=== PATIENT | female | born 1980 | race American Indian/Alaskan Native ===

== ENCOUNTER 2020-02-17 19:39 | Inpatient (IN) | payer OTHER ==
[2020-02-17] MEDS ORDERED: SODIUM CHLORIDE 0.9% 500 ML 500 ML IV ONE (20:07)
[2020-02-17 21:02] LABS: Basophils % (Auto) 0.1 % (0.0-1.8); Hematocrit 42.8 % (30.3-42.9); Hemoglobin 14.2 gm/dl (10.1-14.3); Lymphocytes # (Auto) 0.8 K/mm3 (1.2-5.4); Lymphocytes % (Auto) 5.1 % (13.4-35.0); Mean Corpuscular HGB Conc 33 % (30-34); Mean Corpuscular Volume 82 fl (79-97); Monocytes # (Auto) 0.8 K/mm3 (0.0-0.8); Platelet Count 299 K/mm3 (140-440); Red Blood Count 5.24 M/mm3 (3.65-5.03); Red Cell Distribution Width 14.6 % (13.2-15.2)
[2020-02-17 21:10] LABS: INR 1.16 (0.87-1.13)
[2020-02-17 21:25] LABS: Alanine Aminotransferase 15 units/L (7-56); BUN/Creatinine Ratio 10; Blood Urea Nitrogen 8 mg/dL (7-17); Calcium 9.1 mg/dL (8.4-10.2); Hemolysis Index 10
[2020-02-17] MEDS ORDERED: POTASSIUM CHLORIDE ER 20 MEQ TAB PO ONE (22:10)
[2020-02-17] MEDS ORDERED: KETOROLAC 30 MG/1 ML INJ IV ONE (22:11)
[2020-02-17] MEDS ORDERED: ACETAMINOPHEN 325 MG TAB PO ONE (22:11)
[2020-02-17] MEDS ORDERED: cefTRIAXone/NS 1 GM/50 ML 1 GM/50 ML BAG IV ONE (22:25)
[2020-02-17] MEDS ORDERED: ONDANSETRON 4 MG/2 ML INJ IV ONE (22:26)
--- NOTE | 2020-02-17 22:35 | XRay Report ---
CHEST 1 VIEW INDICATION: MAIN: possible Sepsis; Patient is c/o NINA that started today. Patient was diagnosed with flu 02/04/20; sent home w/Tamiflu. Started to feel better and now it has returned and is much worse. Sat. 96% he art rate 125 in triage Temp. 102.0.. COMPARISON: None FINDINGS: Support devices: None. Heart: Within normal limits. Lungs/Pleura: Mild bilateral central peribronchial thickening and patchy multifocal airspace disease noted with no pleural effusion. Additional findings: None. IMPRESSION: 1. Pulmonary findings as above. Signer Name: Joss Linares MD Signed: 02/17/2020 10:31 PM Workstation Name: [id number]
--- NOTE | 2020-02-17 22:37 | Emergency Department Report ---
HPI - General Chief Complaint: Dyspnea/Respdistress Time Seen by Provider: 02/17/20 22:09 - HPI HPI: 39-year-old -I[place]ian female presents to the emergency department with complaint of a 3-day history of some shortness of breath, fever, nausea, vom iting, diarrhea, body aches. She denies any current cough. The patient was diagnosed with influenza about 2 weeks ago and finished a course of Tamiflu. The symptoms at that time went away. Currently her is being seen at a [facility] for similar symptoms. She also says that her 9-month-old has had a recent fever. She denies any past medical history. No recent travel. She denies any tobacco or illicit drug use. She has been using an albuterol inhaler and Tylenol for her symptoms with some mild transient relief. ED Past Medical Hx - Past Medical History Previous Medical History?: No - Surgical History Past Surgical History?: No - Social History Smoking Status: Never Smoker ED Review of Systems ROS: Stated complaint: FEVER/NINA Other details as noted in HPI Comment: All other systems reviewed and negative Constitutional: chills, fever Eyes: denies: eye pain, vision change ENT: denies: ear pain, throat pain Respiratory: shortness of breath. denies: cough Cardiovascular: denies: chest pain, palpitations Gastrointestinal: nausea, vomiting, diarrhea. denies: abdominal pain Genitourinary: denies: dysuria, discharge Musculoskeletal: myalgia. denies: joint swelling Skin: denies: rash, lesions Neurological: denies: headache, weakness Physical Exam - Physical Exam Vital Signs: Vital Signs 02/17/20 02/17/20 19:45 21:34 Temperature 102 F H Pulse Rate 125 H Respiratory 22 Rate Blood Pressure 158/89 O2 Sat by Pulse 96 Oximetry Physical Exam: GENERAL: Patient is ill-appearing. HENT: Normocephalic. Atraumatic. Patient has moist mucous membranes. EYES: Extraocular motions are intact. Pupils equal reactive to light bilaterally. NECK: Supple. Trachea is midline. CHEST/LUNGS: Mild rhonchi heard. Tachypnea but no accessory muscle use. There is no respiratory distress noted. HEART/CARDIOVASCULAR: Regular. There is mild to moderate tachycardia. There is no murmur. ABDOMEN: Abdomen is soft, nontender. Patient has normal bowel sounds. SKIN: Skin is warm and dry. NEURO: The patient is awake, alert, and oriented. The patient is cooperative. The patient has no focal neurologic deficits. Normal speech. MUSCULOSKELETAL: There is no tenderness or deformity. There is no evidence of acute injury. ED Course Vital Signs 02/17/20 02/17/20 19:45 21:34 Temperature 102 F H Pulse Rate 125 H Respiratory 22 Rate Blood Pressure 158/89 O2 Sat by Pulse 96 Oximetry ED Medical Decision Making - Lab Data Result diagrams: 02/17/20 20:16 02/17/20 20:16 - EKG Data -: EKG Interpreted by Mn EKG shows normal: sinus rhythm, axis, intervals, QRS complexes, ST-T waves (Nonspecific T waves) Rate: tachycardia (114 bpm) - EKG Data When compared to previous EKG there are: previous EKG unavailable Interpretation: other (Sinus tachycardia with nonspecific T waves) - Radiology Data Radiology results: report reviewed CHEST 1 VIEW INDICATION: MAIN: possible Sepsis; Patient is c/o NINA that started today. Patient was diagnosed with flu 02/04/20; sent home w/Tamiflu. Started to feel better and now it has returned and is much worse. Sat. 96% heart rate 125 in triage Temp. 102.0.. COMPARISON: None FINDINGS: Support devices: None. Heart: Within normal limits. Lungs/Pleura: Mild bilateral central peribronchial thickening and patchy multifocal airspace disease noted with no pleural effusion. Additional findings: None. IMPRESSION: 1. Pulmonary findings as above. - Medical Decision Making This patient presents with a 3-day history of some fever, shortness of breath, nausea and vomiting, diarrhea. She already had the flu 2 weeks ago. She presents with a fever of 102, some tachycardia, tachypnea. Chest x-ray shows patchy multifocal airspace disease concerning for developing multilobular pneumonia. She has a mild leukocytosis of 15,000 but also has leukopenia. Labs also show hyponatremia, hypokalemia, elevated CRP and LDH levels. She was treated empirically for community-acquired/bacterial pneumonia, but she has also moderate to high suspicion for viral pneumonia and Covid 19. The patient has been placed on droplet precautions since arrival to the emergency department. I have been in full PPE gear including N 95, gown, goggles, gloves during my visits and examinations with/of this patient. She will be admitted to the hospital for further evaluation and treatment and was accepted for admission by the hospitalist, Dr. Avila. I have filled out the submission request for Covid 19 testing. Critical Care Time: Yes Critical care time in (mins) excluding proc time.: 31 Critical care attestation.: If time is entered above; I have spent that time in minutes in the direct care of this critically ill patient, excluding procedure time. Critical care time was spent on this patient in doing her initial evaluation, multiple re- evaluations, ordering interpretation of labs and imaging, discussion with the patient, and discussion with the hospitalist service. Critical Care Time: 31 minutes ED Disposition Clinical Impression: Suspected 2019 novel coronavirus infection, Hyponatremia, Hypokalemia Pneumonia Qualifiers: Pneumonia type: due to unspecified organism Laterality: bilateral Lung location: unspecified part of lung Qualified Code(s): J18.9 - Pneumonia, unspecified organism Disposition: OP ADMIT IP TO THIS HOSP Is pt being admited?: Yes Condition: Fair Instructions: Bacterial Pneumonia (ED) Referrals: PRIMARY CARE, [Primary Care Provider] - 3-5 Days Time of Disposition: 01:56
[2020-02-17] MEDS ORDERED: AZITHROMYCIN 500 MG in SODIUM CHLORIDE 0.9% 250ML 250 ML IV ONE (22:51)
[2020-02-17] MEDS ORDERED: SODIUM CHLORIDE 0.9% 500 ML 500 ML ONE (22:55)
[2020-02-18 01:39] LABS: C-Reactive Protein 23.7 mg/dL (0.00-1.30)
[2020-02-18 01:58] LABS: Bilirubin,Urine NEG (Negative); Blood,Urine LG (Negative); Color,Urine Amber (Yellow); Hyaline Casts,Urine 2 /LPF; Mucus,Urine 3+ /HPF; Urobilinogen,Urine < 2.0 mg/dL (<2.0)
[2020-02-18] MEDS ORDERED: ONDANSETRON 4 MG/2 ML INJ IV PRN (02:36)
--- NOTE | 2020-02-18 02:46 | History and Physical Report ---
History of Present Illness Date of examination: 02/18/20 Date of admission: 02/18/2020 Chief complaint: FEVER SHORTNESS OF BREATH History of present illness: 39-year-old -[place] female with no significant past medical history seen in the emergency room today complaining of fever and shortness of breath which has been ongoing for the past few days. She was recently diagnosed with flu about 2 weeks ago during which time she had a Tamiflu with significant i mprovement. She however started having fever and shortness of breath over the past few days. She indicates that her is being treated for similar symptoms at [facility] and her young son is also said to have fever. She denies any recent travel. She denies any chest pain. However she has been having generalized body aches and pain, nausea and vomiting and occasional diarrhea. Evaluation in the emergency room patient said to have had a temperature of about 102 F, CBC shows leukocytosis, chemistry reveals hyponatremia and chest x-ray shows bilateral pneumonia. She was started on empiric IV antibiotics and also being ruled out for Covid 19. Past History Past Medical History: No medical history Past Surgical History: No surgical history Social history: no significant social history Family history: no significant family history Medications and Allergies Allergies Allergy/AdvReac Type Severity Reaction Status Date / Time No Known Allergies Allergy Verified 02/17/20 22:25 Active Meds: Active Medications Acetaminophen (Tylenol) 650 mg PO Q4H PRN PRN Reason: Pain MILD(1-3)/Fever >100.5/KIM Sodium Chloride (Nacl 0.9% 1000 Ml) 1,000 mls @ 125 mls/hr IV DIRECT LINDA Ceftriaxone Sodium (Rocephin/Ns 2 Gm/100 Ml) 2 gm in 100 mls @ 200 mls/hr IV Q24HR LINDA; Protocol Azithromycin 500 mg/ Sodium (Chloride) 250 mls @ 250 mls/hr IV Q24HR LINDA; Protocol Magnesium Hydroxide (Milk Of Magnesia) 30 ml PO Q4H PRN PRN Reason: Constipation Ondansetron HCl (Zofran) 4 mg IV Q8H PRN PRN Reason: Nausea And Vomiting Sodium Chloride (Sodium Chloride Flush Syringe 10 Ml) 10 ml IV BID LINDA Sodium Chloride (Sodium Chloride Flush Syringe 10 Ml) 10 ml IV PRN PRN PRN Reason: LINE FLUSH Review of Systems Constitutional: fever, chills, weakness, malaise, poor appetite Ears, nose, mouth and throat: no nasal congestion, no sore throat Cardiovascular: palpitations, no chest pain Respiratory: cough, shortness of breath Gastrointestinal: nausea, vomiting, diarrhea, no abdominal pain Genitourinary Female: dysuria, no hematuria Musculoskeletal: no neck pain, no low back pain Integumentary: no rash, no pruritis Neurological: no headaches, no change in mentation Exam - Constitutional Vitals: Temp Pulse Resp BP Pulse Ox 102 F H 98 H 12 133/85 99 02/17/20 21:34 02/18/20 01:46 02/18/20 01:46 02/18/20 01:46 02/18/20 01:46 General appearance: Present: no acute distress, well-nourished - EENT Eyes: Present: PERRL, EOM intact ENT: hearing intact, clear oral mucosa, dentition normal - Neck Neck: Present: supple, normal ROM - Respiratory Respiratory effort: normal Respiratory: bilateral: diminished - Cardiovascular Rhythm: regular Heart Sounds: Present: S1 & S2 - Extremities Extremities: no ischemia, pulses intact, No edema, Full ROM Peripheral Pulses: within normal limits - Abdominal General gastrointestinal: Present: soft, non-tender, non-distended - Integumentary Integumentary: Present: clear, warm, dry - Musculoskeletal Musculoskeletal: strength equal bilaterally - Psychiatric Psychiatric: appropriate mood/affect, intact judgment & insight, cooperative - Neurologic Neurologic: CNII-XII intact, moves all extremities Results - Labs CBC & Chem 7: 02/17/20 20:16 02/17/20 20:16 Labs: Abnormal lab results 02/17/20 02/17/20 02/17/20 Range/Units 20:16 20:16 20:16 WBC 15.6 H (4.5-11.0) K/mm3 RBC 5.24 H (3.65-5.03) M/mm3 MCH 27 L (28-32) pg Lymph % (Auto) 5.1 L (13.4-35.0) % Lymph # 0.8 L (1.2-5.4) K/mm3 Seg Neutrophils % 89.8 H (40.0-70.0) % Seg Neutrophils # 14.0 H (1.8-7.7) K/mm3 PT 15.0 H (12.2-14.9) Sec. INR 1.16 H (0.87-1.13) VBG pH (7.320-7.420) Sodium 129 L (137-145) mmol/L Potassium 3.2 L (3.6-5.0) mmol/L Chloride 92.0 L (98-107) mmol/L Carbon Dioxide 18 L (22-30) mmol/L Glucose 152 H (65-100) mg/dL Lactate Dehydrogenase (91-180) units/L C-Reactive Protein (0.00-1.30) mg/dL Urine WBC (Auto) (0.0-6.0) /HPF U Epithel Cells (Auto) (0-13.0) /HPF 02/17/20 02/17/20 02/17/20 Range/Units 20:16 23:20 23:25 WBC (4.5-11.0) K/mm3 RBC (3.65-5.03) M/mm3 MCH (28-32) pg Lymph % (Auto) (13.4-35.0) % Lymph # (1.2-5.4) K/mm3 Seg Neutrophils % (40.0-70.0) % Seg Neutrophils # (1.8-7.7) K/mm3 PT (12.2-14.9) Sec. INR (0.87-1.13) VBG pH 7.543 H (7.320-7.420) Sodium (137-145) mmol/L Potassium (3.6-5.0) mmol/L Chloride (98-107) mmol/L Carbon Dioxide (22-30) mmol/L Glucose (65-100) mg/dL Lactate Dehydrogenase 201 H (91-180) units/L C-Reactive Protein 23.70 H (0.00-1.30) mg/dL Urine WBC (Auto) 36.0 H (0.0-6.0) /HPF U Epithel Cells (Auto) 20.0 H (0-13.0) /HPF Assessment and Plan - Patient Problems (1) Pneumonia Current Visit: Yes Status: Acute Qualifiers: Pneumonia type: due to unspecified organism Laterality: bilateral Lung location: unspecified part of lung Qualified Code(s): J18.9 - Pneumonia, unspecified organism Plan to address problem: Patient placed on empiric IV antibiotics. We await blood culture results. (2) Suspected 2019 novel coronavirus infection Current Visit: Yes Status: Acute Plan to address problem: Patient placed on droplet precautions. Will consult infectious disease for eval uation and recommendation. (3) Hypokalemia Current Visit: Yes Status: Acute Plan to address problem: Potassium will be repleted and will monitor chemistry. (4) Hyponatremia Current Visit: Yes Status: Acute Plan to address problem: We will continue IV fluid normal saline and monitor chemistry. (5) DVT prophylaxis Current Visit: Yes Status: Acute Plan to address problem: Patient placed on subcutaneous heparin. (6) Full code status Current Visit: Yes Status: Acute
[2020-02-18] MEDS: ACETAMINOPHEN 325 MG TAB PO PRN ×4 (05:14→23:21)
[2020-02-18] MEDS: SODIUM CHLORIDE 0.9% 1000 ML 1,000 ML IV SCH ×3 (05:14→17:09)
[2020-02-18] MEDS: cefTRIAXone/NS 2 GM/100 ML 2 GM/100 ML BAG IV SCH (09:20)
[2020-02-18] MEDS: AZITHROMYCIN 500 MG in SODIUM CHLORIDE 0.9% 250ML 250 ML IV SCH (10:35)
[2020-02-18] MEDS: HEPARIN 5,000 UNIT/1 ML VIAL SUB-Q SCH ×2 (14:00→21:24)
--- NOTE | 2020-02-18 15:56 | Consultation ---
History of Present Illness - Reason for Consult Consult date: 02/18/20 pneumonia r/o COVID Requesting physician: JERRY NAVARRO - History of Present Illness 39 y/o female with no significant past medical history admitted on 02/17/2020 due to a week history of fever and shortness of breath associated with body aches, nausea, vomiting and some diarrhea. 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 She was recently diagnosed with flu about 2 weeks ago during which time she had a Tamiflu with significant improvement. She however started having fever and shortness of breath over the past few days. She indicates that her is also sick and being treated for similar symptoms at [place] and her young son is also said to have fever. She denies any recent travel. On arrival, temp 102, tachycardia, leukocytosis with lymphopenia, normal procalcitonin, Ferritin and LDH mildly elevated. CRP highly elevated. Chest x-ray shows bilateral patchy multifocal infiltrates. Review of Systems: Bold if positive, otherwise negative General: fevers, chills, rigors HEENT: visual disturbance, diplopia, eye pain Respiratory: cough, sputum, shortness of breath, HAYES Cardiovascular: chest pain, syncope Gastrointestinal: nausea, vomiting, diarrhea, abdominal pain Genitourinary: dysuria, hematuria, flank pain Musculoskeletal: neck pain, back pain, joint pain, edema Neurologic: headaches, seizures Hematologic: easy bruising or bleeding Endocrine: night sweats, acute weight loss Skin: rash, jaundice, redness Psychiatric: suicidal, homicidal ideation Past History Past Medical History: No medical history Past Surgical History: No surgical history Social history: no significant social history Family history: no significant family history Medications and Allergies Allergies Allergy/AdvReac Type Severity Reaction Status Date / Time No Known Allergies Allergy Verified 02/17/20 22:25 Active Meds: Active Medications Acetaminophen (Tylenol) 650 mg PO Q4H PRN PRN Reason: Pain MILD(1-3)/Fever >100.5/KIM Last Admin: 02/18/20 13:59 Dose: 650 mg Documented by: Heparin Sodium (Porcine) (Heparin) 5,000 unit SUB-Q Q8HR LINDA Last Admin: 02/18/20 14:00 Dose: 5,000 unit Documented by: Sodium Chloride (Nacl 0.9% 1000 Ml) 1,000 mls @ 125 mls/hr IV DIRECT LINDA Last Admin: 02/18/20 14:00 Dose: 125 mls/hr Documented by: Ceftriaxone Sodium (Rocephin/Ns 2 Gm/100 Ml) 2 gm in 100 mls @ 200 mls/hr IV Q24HR LINDA; Protocol Last Admin: 02/18/20 09:20 Dose: 200 mls/hr Documented by: Azithromycin 500 mg/ Sodium (Chloride) 250 mls @ 250 mls/hr IV Q24HR LINDA; Prot ocol Last Admin: 02/18/20 10:35 Dose: 250 mls/hr Documented by: Magnesium Hydroxide (Milk Of Magnesia) 30 ml PO Q4H PRN PRN Reason: Constipation Ondansetron HCl (Zofran) 4 mg IV Q8H PRN PRN Reason: Nausea And Vomiting Last Admin: 02/18/20 05:14 Dose: 4 mg Documented by: Sodium Chloride (Sodium Chloride Flush Syringe 10 Ml) 10 ml IV BID LINDA Last Admin: 02/18/20 10:34 Dose: 10 ml Documented by: Sodium Chloride (Sodium Chloride Flush Syringe 10 Ml) 10 ml IV PRN PRN PRN Reason: LINE FLUSH Last Admin: 02/18/20 05:34 Dose: 10 ml Documented by: Physical Examination - Physical Exam Narrative exam: Gen: alert in NAD in NC O2 2L Head, Ears, Nose: Normocephalic, atraumatic. Oral: Limited Cardiovascular: Limited evaluation due to PPE shortage Respiratory: deonna crackles GI: Limited evaluation due to PPE shortage Musculoskeletal: Limited evaluation due to PPE shortage Neurological: alert non focal - Constitutional Vitals: Vital Signs Temp Pulse Resp BP Pulse Ox 98.4 F 98 H 12 133/85 99 02/18/20 05:41 02/18/20 01:46 02/18/20 01:46 02/18/20 01:46 02/18/20 01:46 Temperature -Last 24 Hours Temperature 98.4 F Temperature 102 F Results - Labs CBC & Chem 7: 02/17/20 20:16 02/17/20 20:16 Labs: Abnormal lab results 02/17/20 02/17/20 02/17/20 Range/Units 20:16 20:16 20:16 WBC 15.6 H (4.5-11.0) K/mm3 RBC 5.24 H (3.65-5.03) M/mm3 MCH 27 L (28-32) pg Lymph % (Auto) 5.1 L (13.4-35.0) % Lymph # 0.8 L (1.2-5.4) K/mm3 Seg Neutrophils % 89.8 H (40.0-70.0) % Seg Neutrophils # 14.0 H (1.8-7.7) K/mm3 PT 15.0 H (12.2-14.9) Sec. INR 1.16 H (0.87-1.13) D-Dimer (0-234) ng/mlDDU VBG pH (7.320-7.420) Sodium 129 L (137-145) mmol/L Potassium 3.2 L (3.6-5.0) mmol/L Chloride 92.0 L (98-107) mmol/L Carbon Dioxide 18 L (22-30) mmol/L Glucose 152 H (65-100) mg/dL Ferritin (13.0-400.0) ng/mL Lactate Dehydrogenase (91-180) units/L C-Reactive Protein (0.00-1.30) mg/dL Urine WBC (Auto) (0.0-6.0) /HPF U Epithel Cells (Auto) (0-13.0) /HPF 02/16/02/17/20 02/17/20 Range/Units 20:16 23:20 23:25 WBC (4.5-11.0) K/mm3 RBC (3.65-5.03) M/mm3 MCH (28-32) pg Lymph % (Auto) (13.4-35.0) % Lymph # (1.2-5.4) K/mm3 Seg Neutrophils % (40.0-70.0) % Seg Neutrophils # (1.8-7.7) K/mm3 PT (12.2-14.9) Sec. INR (0.87-1.13) D-Dimer (0-234) ng/mlDDU VBG pH 7.543 H (7.320-7.420) Sodium (137-145) mmol/L Potassium (3.6-5.0) mmol/L Chloride (98-107) mmol/L Carbon Dioxide (22-30) mmol/L Glucose (65-100) mg/dL Ferritin (13.0-400.0) ng/mL Lactate Dehydrogenase 201 H (91-180) units/L C-Reactive Protein 23.70 H (0.00-1.30) mg/dL Urine WBC (Auto) 36.0 H (0.0-6.0) /HPF U Epithel Cells (Auto) 20.0 H (0-13.0) /HPF 02/18/20 02/18/20 02/18/20 Range/Units 03:03 03:03 03:03 WBC (4.5-11.0) K/mm3 RBC (3.65-5.03) M/mm3 MCH (28-32) pg Lymph % (Auto) (13.4-35.0) % Lymph # (1.2-5.4) K/mm3 Seg Neutrophils % (40.0-70.0) % Seg Neutrophils # (1.8-7.7) K/mm3 PT (12.2-14.9) Sec. INR (0.87-1.13) D-Dimer 322.27 H (0-234) ng/mlDDU VBG pH (7.320-7.420) Sodium (137-145) mmol/L Potassium (3.6-5.0) mmol/L Chloride (98-107) mmol/L Carbon Dioxide (22-30) mmol/L Glucose (65-100) mg/dL Ferritin 416.9 H (13.0-400.0) ng/mL Lactate Dehydrogenase 208 H (91-180) units/L C-Reactive Protein (0.00-1.30) mg/dL Urine WBC (Auto) (0.0-6.0) /HPF U Epithel Cells (Auto) (0-13.0) /HPF Assessment and Plan Cultures: Blood culture 02/17/2020 no growth to date A/P: 39 y/o female with no significant past medical history admitted on 02/17/2020 due to a week history of fever and shortness of breath associated with body aches, nausea, vomiting and some diarrhea. 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 CRP highly elevated. Chest x-ray shows bilateral patchy multifocal infiltrates. On 2L NC O2 #Acute resp failure: on NC O2 #N/D/diarrhea: COVID is a pneumo-enteric virus, can cause pneumonia and diarrhea Recs: Continuos pulse oximetry Obtain COVID test ContinueCOVID isolationprecautions per [facility] protocol Start hydroxychloroquine 400 mg PO BID for 1 day then 200 mg PO BID for 4 days (total 5 days) with zinc 220 mg PO qday Start ceftriaxone and azithromycin total 5 days Obtain serial Ferritin, LDH, D-Dimer, CRP every 48h Home quarantine for 14 days from initial symptoms (own bedroom, toilet, utensils), educate that viral shedding may last 21 days Daily EKG - QT monitoring - stop plaqenil if QT interval >500 If oxygen requirement and markers are improving ok to d/c on home quarantine until COVID test is back Obtain exercise oximetry before discharge Thank you for the consult, we will continue to follow. Ingrid Zamora MD Infectious Diseases [employer] ([facility]) M [phone] O [phone]
[2020-02-18] MEDS: oxyCODONE /ACETAMINOPHEN 5-325MG TAB PO PRN ×2 (17:08→23:22)
[2020-02-18] MEDS: CETIRIZINE 10 MG TAB PO SCH (17:08)
--- NOTE | 2020-02-18 21:16 | Event Note ---
Date: 02/18/20 39 y/o female patient admitted on 02/17/2020 with fever and shortness of breath of 1 week associated with body aches, nausea, vomiting and some diarrhea. 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 She was recently diagnosed with flu about 2 weeks ago during which time she had a Tamiflu with significant improvement. She however started having fever and shortness of breath over the past few days. She indicates that her is also sick and being treated for similar symptoms at [place] and her young son is also said to have fever. She denies any recent travel. On arrival, temp 102, tachycardia, leukocytosis with lymphopenia, normal procalcitonin, Ferritin and LDH mildly elevated. CRP highly elevated. Chest x-ray shows bilateral patchy multifocal infiltrates. Admitted to rule out Covid-19 I have seen and examined in isolation room with PPE and isolation precautions Continue current management., Follow ID evaluation and recommendations
[2020-02-18] MEDS ORDERED: ALBUTEROL 2.5 MG/3 ML NEBU IH PRN ×3 (22:08→22:19)
[2020-02-18] MEDS ORDERED: ALBUTEROL 2.5 MG/3 ML NEBU IH ONE (22:14)
--- NOTE | 2020-02-19 01:16 | Cat Scan Report ---
CT angio chest INDICATION / CLINICAL INFORMATION: P.E. PROTOCOL!!! S.O.B., Elevated D-dimers Omnipaque 350 / 100ml's was used for this exam.. TECHNIQUE: Axial CT images were obtained after injection of 100 cc of Omnipaque 350 IV contrast using CTA protoc ol. 3 plane MIP / 3D reconstructions were produced. All CT scans at this location are performed using CT dose reduction for ALARA by means of automated exposure control. COMPARISON: None available. FINDINGS: Following the administration of intravenous contrast, no filling defects are seen in the main pulmona ry arteries or their branches. Diffuse reticular-nodular disease is seen and both lungs. No enlarged mediastinal or hilar lymph nodes are identified. Other than degenerative change in the spine, no sign ificant skeletal abnormality is identified. IMPRESSION: 1. No evidence of pulmonary embolus 2. 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
[2020-02-19] MEDS: HEPARIN 5,000 UNIT/1 ML VIAL SUB-Q SCH ×3 (05:17→22:13)
[2020-02-19] MEDS: oxyCODONE /ACETAMINOPHEN 5-325MG TAB PO PRN ×3 (05:18→22:11)
[2020-02-19 05:41] LABS: Basophils % (Auto) 0.2 % (0.0-1.8); Hematocrit 39.3 % (30.3-42.9); Hemoglobin 12.9 gm/dl (10.1-14.3); Lymphocytes # (Auto) 1.4 K/mm3 (1.2-5.4); Lymphocytes % (Auto) 10.7 % (13.4-35.0); Mean Corpuscular HGB Conc 33 % (30-34); Mean Corpuscular Volume 82 fl (79-97); Monocytes # (Auto) 0.7 K/mm3 (0.0-0.8); Monocytes % (Auto) 5.5 % (0.0-7.3); Platelet Count 264 K/mm3 (140-440); Red Blood Count 4.79 M/mm3 (3.65-5.03); Red Cell Distribution Width 14.9 % (13.2-15.2)
[2020-02-19 05:59] LABS: BUN/Creatinine Ratio 7; Blood Urea Nitrogen 5 mg/dL (7-17); Calcium 8.2 mg/dL (8.4-10.2); Hemolysis Index 11
[2020-02-19] MEDS: SODIUM CHLORIDE 0.9% 1000 ML 1,000 ML IV SCH ×2 (08:10→18:39)
[2020-02-19] MEDS: cefTRIAXone/NS 2 GM/100 ML 2 GM/100 ML BAG IV SCH (09:27)
[2020-02-19] MEDS: CETIRIZINE 10 MG TAB PO SCH (09:28)
[2020-02-19] MEDS: AZITHROMYCIN 500 MG in SODIUM CHLORIDE 0.9% 250ML 250 ML IV SCH (10:36)
[2020-02-19] MEDS: HYDROXYCHLOROQUINE 200 MG TAB PO SCH ×2 (14:04→22:12)
[2020-02-19] MEDS: ZINC SULFATE 220 MG CAP PO SCH (14:04)
[2020-02-19] MEDS: IPRATROPIUM/ALBUTEROL SULFATE 3 ML AMPUL.NEB IH SCH ×2 (15:18→20:20)
--- NOTE | 2020-02-19 18:09 | Progress Note ---
Assessment and Plan Assessment and plan: 39-year-old -[place] female with no significant past medical history seen in the emergency room today complaining of fever and shortness of breath which has been ongoing for the past few days. She was recently diagnosed with flu about 2 weeks ago during which time she had a Tamiflu with significant improvement. She however started having fever and shortness of breath over the past few days. She indicates that her is being treated for similar symptoms at [place] and her young son is also said to have fever. She denies any recent travel. She denies any chest pain. However she has been having generalized body aches and pain, nausea and vomiting and occasional diarrhea. Evaluation in the emergency room patient said to have had a temperature of about 102 F, CBC shows leukocytosis, chemistry reveals hyponatremia and chest x-ray shows bilateral pneumonia. She was started on empiric IV antibiotics and also being ruled out for Covid 19. Patient informs me that her 's results was negative as he was also admitted at [facility]. Acute dyspnea secondary to pneumonia possible viral induced with underlying recent flu Suspected COVID 19 infection high suspicion with noted elevated ferritin and LDH and CRP P with bilateral infiltrates. Bilateral pneumonia Hypokalemia Hyponatremia Gastroenteritis with diarrhea now resolving Anxiety Plan Continue supportive care Xanax for anxiety Continuos pulse oximetry and exercise oximetry Plaquenil and azithromycin started per protocol here at [facility] f/u COVID test - pending Continue COVID isolation precautions per [facility] protocol Obtain serial Ferritin, LDH, D-Dimer, CRP every 48h Daily EKG - QT monitoring - stop plaqenil if QT interval >500 Home quarantine for 14 days from initial symptoms (own bedroom, toilet, utensils), educate that viral shedding may last 21 days We will discharge if oxygen requirement continues to improve History Interval history: Patient seen and examined, remains with pleuritic chest pain and some shortness of breath but no new complaints. Hospitalist Physical - Physical exam Narrative exam: VITAL SIGNS: Reviewed. GENERAL: The patient appears normally developed, obese anxious appearing vital signs as documented. HEAD: No signs of head trauma. EYES: Pupils are equal. Extraocular motions intact. EARS: Hearing grossly intact. MOUTH: Oropharynx is normal. NECK: No adenopathy, no JVD. CHEST: Chest with diminished r breath sounds bilaterally with fine crackles at the base. No wheezes, rales, or rhonchi. CARDIAC: Regular rate and rhythm. S1 and S2, without murmurs, gallops, or rubs. VASCULAR: No Edema. Peripheral pulses normal and equal in all extremities. ABDOMEN: Soft, non tender and non distended. No rebound or guarding, and no masses palpated. Bowel Sounds normal. MUSCULOSKELETAL: Good range of motion of all major joints. Extremities without clubbing, cyanosis or edema. NEUROLOGIC EXAM: Alert and oriented x 3 No focal sensory or strength deficits. Speech normal. Follows commands. PSYCHIATRIC: Mood anxious . SKIN: detial exam as documented in skin assessment - Constitutional Vitals: Temp Pulse Resp BP Pulse Ox 99.4 F 93 H 18 108/65 96 02/19/20 16:57 02/19/20 16:57 02/19/20 16:57 02/19/20 16:57 02/19/20 16:57 General appearance: Present: no acute distress, well-nourished Results - Labs CBC & Chem 7: 02/19/20 04:18 02/19/20 04:18 Labs: Laboratory Last Values WBC 12.7 K/mm3 (4.5-11.0) H 02/19/20 04:18 RBC 4.79 M/mm3 (3.65-5.03) 02/19/20 04:18 Hgb 12.9 gm/dl (10.1-14.3) 02/19/20 04:18 Hct 39.3 % (30.3-42.9) 02/19/20 04:18 MCV 82 fl (79-97) 02/19/20 04:18 MCH 27 pg (28-32) L 02/19/20 04:18 MCHC 33 % (30-34) 02/19/20 04:18 RDW 14.9 % (13.2-15.2) 02/19/20 04:18 Plt Count 264 K/mm3 (140-440) 02/19/20 04:18 Lymph % (Auto) 10.7 % (13.4-35.0) L 02/19/20 04:18 White % (Auto) 5.5 % (0.0-7.3) 02/19/20 04:18 Eos % (Auto) 0.0 % (0.0-4.3) 02/19/20 04:18 Baso % (Auto) 0.2 % (0.0-1.8) 02/19/20 04:18 Lymph # 1.4 K/mm3 (1.2-5.4) 02/19/20 04:18 White # 0.7 K/mm3 (0.0-0.8) 02/19/20 04:18 Eos # 0.0 K/mm3 (0.0-0.4) 02/19/20 04:18 Baso # 0.0 K/mm3 (0.0-0.1) 02/19/20 04:18 Seg Neutrophils % 83.6 % (40.0-70.0) H 02/19/20 04:18 Seg Neutrophils # 10.6 K/mm3 (1.8-7.7) H 02/19/20 04:18 PT 15.0 Sec. (12.2-14.9) H 02/17/20 20:16 INR 1.16 (0.87-1.13) H 02/17/20 20:16 D-Dimer 322.27 ng/mlDDU (0-234) H 02/18/20 03:03 VBG pH 7.543 (7.320-7.420) H 02/17/20 20:16 Sodium 135 mmol/L (137-145) L 02/19/20 04:18 Potassium 3.4 mmol/L (3.6-5.0) L 02/19/20 04:18 Chloride 97.5 mmol/L (98-107) L 02/19/20 04:18 Carbon Dioxide 20 mmol/L (22-30) L 02/19/20 04:18 Anion Gap 21 mmol/L 02/19/20 04:18 BUN 5 mg/dL (7-17) L 02/19/20 04:18 Creatinine 0.7 mg/dL (0.7-1.2) 02/19/20 04:18 Estimated GFR > 60 ml/min 02/19/20 04:18 BUN/Creatinine Ratio 7 % 02/19/20 04:18 Glucose 108 mg/dL (65-100) H 02/19/20 04:18 Lactic Acid 1.80 mmol/L (0.7-2.0) 02/17/20 20:16 Calcium 8.2 mg/dL (8.4-10.2) L 02/19/20 04:18 Magnesium 1.80 mg/dL (1.7-2.3) 02/19/20 04:18 Ferritin 416.9 ng/mL (13.0-400.0) H 02/18/20 03:03 Total Bilirubin 0.40 mg/dL (0.1-1.2) 02/17/20 20:16 AST 12 units/L (5-40) 02/17/20 20:16 ALT 15 units/L (7-56) 02/17/20 20:16 Alkaline Phosphatase 63 units/L (35-129) 02/17/20 20:16 Lactate Dehydrogenase 208 units/L (91-180) H 02/18/20 03:03 C-Reactive Protein 23.70 mg/dL (0.00-1.30) H 02/17/20 23:25 Total Protein 8.0 g/dL (6.3-8.2) 02/17/20 20:16 Albumin 4.0 g/dL (3.9-5) 02/17/20 20:16 Albumin/Globulin Ratio 1.0 % 02/17/20 20:16 Procalcitonin 0.58 ng/mL (<0.15) 02/18/20 03:03 HCG, Qual Negative (Negative) 02/17/20 20:16 Urine Color Kiesha (Yellow) 02/17/20 23:20 Urine Turbidity Turbid (Clear) 02/17/20 23:20 Urine pH 5.0 (5.0-7.0) 02/17/20 23:20 Ur Specific [place] 1.029 (1.003-1.030) 02/17/20 23:20 Urine Protein 100 mg/dl mg/dL (Negative) 02/17/20 23:20 Urine Glucose (UA) Neg mg/dL (Negative) 02/17/20 23:20 Urine Ketones 20 mg/dL (Negative) 02/17/20 23:20 Urine Blood Lg (Negative) 02/17/20 23:20 Urine Nitrite Neg (Negative) 02/17/20 23:20 Urine Bilirubin Neg (Negative) 02/17/20 23:20 Urine Urobilinogen < 2.0 mg/dL (<2.0) 02/17/20 23:20 Ur Leukocyte Esterase Tr (Negative) 02/17/20 23:20 Urine WBC (Auto) 36.0 /HPF (0.0-6.0) H 02/17/20 23:20 Urine RBC (Auto) 8.0 /HPF (0.0-6.0) 02/17/20 23:20 U Epithel Cells (Auto) 20.0 /HPF (0-13.0) H 02/17/20 23:20 Hyaline Casts 2 /LPF 02/17/20 23:20 Urine Mucus 3+ /HPF 02/17/20 23:20 Microbiology: Microbiology 02/18/20 Unknown Nares - Left MRSA Culture - Preliminary 02/17/20 23:20 Urine,Clean Catch Urine Culture - Preliminary 02/17/20 20:16 Peripheral/Venous Blood Culture - Preliminary NO GROWTH AFTER 24 HOURS 02/17/20 20:16 Peripheral/Venous Blood Culture - Preliminary NO GROWTH AFTER 24 HOURS Mack/IV: Voiding Method Toilet IV Catheter Type [Left Forearm INT / Saline Lock ] IV Catheter Type [Left Hand] Peripheral IV Active Medications - Current Medications Current Medications: Generic Name Dose Route Start Last Admin Trade Name Freq PRN Reason Stop Dose Admin Acetaminophen 650 mg 02/18/20 02:36 02/18/20 23:21 Tylenol PO 650 mg Q4H PRN Administration Pain MILD(1-3)/Fever >100.5/IKM Albuterol 2.5 mg 02/18/20 22:19 02/19/20 10:49 Proventil IH 2.5 mg Q4HRT PRN Administration Shortness Of Breath Albuterol/Ipratropium 1 ampul 02/19/20 14:45 02/19/20 15:18 Duoneb *Not For Prn Use* IH 1 ampul Q6HRT LINDA Administration Alprazolam 0.25 mg 02/19/20 14:34 Xanax PO Q8H PRN Anxiety Cetirizine HCl 10 mg 02/18/20 17:00 02/19/20 09:28 Cetirizine PO 10 mg QDAY LINDA Administration Heparin Sodium (Porcine) 5,000 unit 02/18/20 14:00 02/19/20 14:04 Heparin SUB-Q 5,000 unit Q8HR LINDA Administration Hydroxychloroquine Sulfate 400 mg 02/19/20 14:00 02/19/20 14:04 Plaquenil PO 02/19/20 22:01 400 mg BID LINDA Administration Hydroxychloroquine Sulfate 200 mg 02/20/20 10:00 Plaquenil PO 02/23/20 22:01 BID LINDA Sodium Chloride 1,000 mls @ 125 mls/hr 02/18/20 02:45 02/19/20 08:10 Nacl 0.9% 1000 Ml IV 125 mls/hr DIRECT LINDA Administration Ceftriaxone Sodium 2 gm in 100 mls @ 200 mls/hr 02/18/20 10:00 02/19/20 09:27 Rocephin/Ns 2 Gm/100 Ml IV 200 mls/hr Q24HR LINDA Administration Protocol Azithromycin 500 mg/ Sodium 250 mls @ 250 mls/hr 02/18/20 10:00 02/19/20 10:36 Chloride IV 250 mls/hr Q24HR LINDA Administration Protocol Magnesium Hydroxide 30 ml 02/18/20 02:36 Milk Of Magnesia PO Q4H PRN Constipation Ondansetron HCl 4 mg 02/18/20 02:36 02/18/20 05:14 Zofran IV 4 mg Q8H PRN Administration Nausea And Vomiting Oxycodone/Acetaminophen 1 tab 02/18/20 16:36 02/19/20 14:13 Percocet 5/325 PO 1 tab Q6H PRN Administration Pain, Moderate (4-6) Sodium Chloride 10 ml 02/18/20 10:00 02/19/20 09:28 Sodium Chloride Flush Syringe 10 Ml IV Not Given BID LINDA Sodium Chloride 10 ml 02/18/20 02:36 02/18/20 05:34 Sodium Chloride Flush Syringe 10 Ml IV 10 ml PRN PRN Administration LINE FLUSH Zinc Sulfate 220 mg 02/19/20 13:00 02/19/20 14:04 Zinc Sulfate PO 02/23/20 12:01 220 mg DAILY@1200 LINDA Administration
--- NOTE | 2020-02-19 20:26 | Progress Note ---
Assessment and Plan Cultures: Blood culture 02/17/2020 no growth to date A/P: 39 y/o female with no significant past medical history admitted on 02/17/2020 due to a week history of fever and shortness of breath associated with body aches, nausea, vomiting and some diarrhea. 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 CRP highly elevated. Chest x-ray shows bilateral patchy multifocal infiltrates. On 2L NC O2 #Acute resp failure: on NC O2 #N/D/diarrhea: COVID is a pneumo-enteric virus, can cause pneumonia and diarrhea Recs: Continuos pulse oximetry and exercise oximetry Obtain COVID test - pending ContinueCOVID isolationprecautions per [facility] protocol Continue hydroxychloroquine 400 mg PO BID for 1 day then 200 mg PO BID for 4 days (total 5 days) with zinc 220 mg PO qday Continue ceftriaxone Stop azithromycin Obtain serial Ferritin, LDH, D-Dimer, CRP - tomorrow Home quarantine for 14 days from initial symptoms (own bedroom, toilet, utensi ls), educate that viral shedding may last 21 days Daily EKG - QT monitoring - stop plaqenil if QT interval >500 Thank you for the consult, we will continue to follow. Ingrid Zamora MD Infectious Diseases [employer] [facility] ([facility]) M [phone] O [phone] Subjective Date of service: 02/19/20 Principal diagnosis: pneumonia Interval history: Remains in [place] O2 c/o HAYES, SOB and fever 101.2 Objective - Exam Narrative Exam: Gen: alert in NAD in NC O2 2L Head, Ears, Nose: Normocephalic, atraumatic. Oral: Limited Cardiovascular: Limited evaluation due to PPE shortage Respiratory: deonna crackles GI: Limited evaluation due to PPE shortage Musculoskeletal: Limited evaluation due to PPE shortage Neurological: alert non focal - Constitutional Vitals: Vital Signs Temp Pulse Resp BP Pulse Ox 99.4 F 93 H 18 108/65 96 02/19/20 16:57 02/19/20 16:57 02/19/20 16:57 02/19/20 16:57 02/19/20 16:57 Temperature -Last 24 Hours Temperature 99.4 F Temperature 98.9 F Temperature 101.2 F Temperature 102.6 F - Labs CBC & Chem 7: 02/19/20 04:18 02/19/20 04:18 Labs: Abnormal lab results 02/19/20 02/19/20 Range/Units 04:18 04:18 WBC 12.7 H (4.5-11.0) K/mm3 MCH 27 L (28-32) pg Lymph % (Auto) 10.7 L (13.4-35.0) % Seg Neutrophils % 83.6 H (40.0-70.0) % Seg Neutrophils # 10.6 H (1.8-7.7) K/mm3 Sodium 135 L (137-145) mmol/L Potassium 3.4 L (3.6-5.0) mmol/L Chloride 97.5 L (98-107) mmol/L Carbon Dioxide 20 L (22-30) mmol/L BUN 5 L (7-17) mg/dL Glucose 108 H (65-100) mg/dL Calcium 8.2 L (8.4-10.2) mg/dL
[2020-02-19] MEDS: ALPRAZolam 0.25 MG TAB PO PRN (22:12)
[2020-02-20] MEDS: IPRATROPIUM/ALBUTEROL SULFATE 3 ML AMPUL.NEB IH SCH ×3 (01:46→19:40)
[2020-02-20] MEDS: SODIUM CHLORIDE 0.9% 1000 ML 1,000 ML IV SCH ×3 (03:13→18:43)
[2020-02-20] MEDS: oxyCODONE /ACETAMINOPHEN 5-325MG TAB PO PRN ×3 (04:35→23:43)
[2020-02-20] MEDS: HEPARIN 5,000 UNIT/1 ML VIAL SUB-Q SCH ×3 (05:20→22:00)
[2020-02-20 05:35] LABS: Hematocrit 34.8 % (30.3-42.9); Hemoglobin 11.6 gm/dl (10.1-14.3); Mean Corpuscular HGB Conc 33 % (30-34); Mean Corpuscular Volume 82 fl (79-97); Platelet Count 272 K/mm3 (140-440); Red Blood Count 4.24 M/mm3 (3.65-5.03); Red Cell Distribution Width 14.7 % (13.2-15.2)
[2020-02-20] MEDS: ALPRAZolam 0.25 MG TAB PO PRN ×2 (05:54→21:58)
[2020-02-20 05:58] LABS: BUN/Creatinine Ratio 8; Blood Urea Nitrogen 5 mg/dL (7-17); Calcium 8.1 mg/dL (8.4-10.2); Hemolysis Index 0
[2020-02-20] MEDS: cefTRIAXone/NS 2 GM/100 ML 2 GM/100 ML BAG IV SCH (10:16)
[2020-02-20] MEDS: CETIRIZINE 10 MG TAB PO SCH (10:17)
[2020-02-20] MEDS: HYDROXYCHLOROQUINE 200 MG TAB PO SCH ×2 (10:17→21:58)
--- NOTE | 2020-02-20 12:01 | Consultation ---
History of Present Illness Consult date: 02/20/20 Requesting physician: MARJORIE MUÑIZ Reason for consult: hypoxemia History of present illness: 39 y/o obese female admitted with fever, dyspnea on exertion and elevated inflammatory markers. She was diagnosed with the flu last month and treated and had improvement. A few days ago started to have generalized malaise, diarrhea and shortness of breath with fever. Febrile in the ED. Family ( and son) both with similar symptoms and sick at home. CTA here was negative for PE but showed diffuse reticulonodular disease. Elevated WBC, but negative procalcitonin. Started on Rocephin and Azithro and now Hydrox chloroquine. Had elevated ferritin and today it has almost doubled. Sats are stable on 2 liters ranging in the mid 's. Past History Past Medical History: No medical history Past Surgical History: No surgical history Social history: no significant social history Family history: no significant family history Medications and Allergies Allergies Allergy/AdvReac Type Severity Reaction Status Date / Time No Known Allergies Allergy Verified 02/17/20 22:25 Home Medications Medication Instructions Recorded Confirmed Last Taken Type Ipratropium/Albuterol Sulfate 2 spray IH QID PRN 02/19/20 02/19/20 Unknown History [Combivent Respimat] Active Meds: Active Medications Acetaminophen (Tylenol) 650 mg PO Q4H PRN PRN Reason: Pain MILD(1-3)/Fever >100.5/KIM Last Admin: 02/18/20 23:21 Dose: 650 mg Documented by: Albuterol (Proventil) 2.5 mg IH Q4HRT PRN PRN Reason: Shortness Of Breath Last Admin: 02/19/20 10:49 Dose: 2.5 mg Documented by: Albuterol/Ipratropium (Duoneb *Not For Prn Use*) 1 ampul IH Q6HRT [facility] Last Admin: 02/20/20 10:10 Dose: Not Given Documented by: Alprazolam (Xanax) 0.25 mg PO Q8H PRN PRN Reason: Anxiety Last Admin: 02/20/20 05:54 Dose: 0.25 mg Documented by: Cetirizine HCl (Cetirizine) 10 mg PO QDAY [facility] Last Admin: 02/20/20 10:17 Dose: 10 mg Documented by: Heparin Sodium (Porcine) (Heparin) 5,000 unit SUB-Q Q8HR [facility] Last Admin: 02/20/20 05:20 Dose: 5,000 unit Documented by: Hydroxychloroquine Sulfate (Plaquenil) 200 mg PO BID [facility] Stop: 02/23/20 22:01 Last Admin: 02/20/20 10:17 Dose: 200 mg Documented by: Sodium Chloride (Nacl 0.9% 1000 Ml) 1,000 mls @ 125 mls/hr IV DIRECT [facility] Last Admin: 02/20/20 10:16 Dose: 125 mls/hr Documented by: Ceftriaxone Sodium (Rocephin/Ns 2 Gm/100 Ml) 2 gm in 100 mls @ 200 mls/hr IV Q24HR [facility]; Protocol Last Admin: 02/20/20 10:16 Dose: 200 mls/hr Documented by: Magnesium Hydroxide (Milk Of Magnesia) 30 ml PO Q4H PRN PRN Reason: Constipation Ondansetron HCl (Zofran) 4 mg IV Q8H PRN PRN Reason: Nausea And Vomiting Last Admin: 02/18/20 05:14 Dose: 4 mg Documented by: Oxycodone/Acetaminophen (Percocet 5/325) 1 tab PO Q6H PRN PRN Reason: Pain, Moderate (4-6) Last Admin: 02/20/20 04:35 Dose: 1 tab Documented by: Sodium Chloride (Sodium Chloride Flush Syringe 10 Ml) 10 ml IV BID [facility] Last Admin: 02/20/20 10:17 Dose: 10 ml Documented by: Sodium Chloride (Sodium Chloride Flush Syringe 10 Ml) 10 ml IV PRN PRN PRN Reason: LINE FLUSH Last Admin: 02/18/20 05:34 Dose: 10 ml Documented by: Zinc Sulfate (Zinc Sulfate) 220 mg PO DAILY@1200 [facility] Stop: 02/23/20 12:01 Last Admin: 02/19/20 14:04 Dose: 220 mg Documented by: Review of Systems Constitutional: fever, malaise, other (dyspnea) Physical Examination Vital signs: Vital Signs Pulse Resp BP Pulse Ox 125 H 22 158/89 96 02/17/20 19:45 02/17/20 19:45 02/17/20 19:45 02/17/20 19:45 Results - Laboratory Findings CBC and BMP: 02/20/20 04:12 02/20/20 04:12 PT/INR, D-dimer PT 15.0 Sec. (12.2-14.9) H 02/17/20 20:16 INR 1.16 (0.87-1.13) H 02/17/20 20:16 D-Dimer 837.36 ng/mlDDU (0-234) H 02/20/20 04:12 Abnormal lab findings: Abnormal Labs 02/17/20 02/17/20 02/17/20 20:16 20:16 20:16 WBC 15.6 H RBC 5.24 H MCH 27 L Lymph % (Auto) 5.1 L Lymph # 0.8 L Seg Neutrophils % 89.8 H Seg Neutrophils # 14.0 H PT 15.0 H INR 1.16 H D-Dimer VBG pH Sodium 129 L Potassium 3.2 L Chloride 92.0 L Carbon Dioxide 18 L BUN Creatinine Glucose 152 H Calcium Ferritin Lactate Dehydrogenase C-Reactive Protein Urine WBC (Auto) U Epithel Cells (Auto) 02/17/20 02/17/20 02/17/20 20:16 23:20 23:25 WBC RBC MCH Lymph % (Auto) Lymph # Seg Neutrophils % Seg Neutrophils # PT INR D-Dimer VBG pH 7.543 H Sodium Potassium Chloride Carbon Dioxide BUN Creatinine Glucose Calcium Ferritin Lactate Dehydrogenase 201 H C-Reactive Protein 23.70 H Urine WBC (Auto) 36.0 H U Epithel Cells (Auto) 20.0 H 02/18/20 02/18/20 02/18/20 03:03 03:03 03:03 WBC RBC MCH Lymph % (Auto) Lymph # Seg Neutrophils % Seg Neutrophils # PT INR D-Dimer 322.27 H VBG pH Sodium Potassium Chloride Carbon Dioxide BUN Creatinine Glucose Calcium Ferritin 416.9 H Lactate Dehydrogenase 208 H C-Reactive Protein Urine WBC (Auto) U Epithel Cells (Auto) 02/19/20 02/19/20 02/20/20 04:18 04:18 04:12 WBC 12.7 H RBC MCH 27 L 27 L Lymph % (Auto) 10.7 L Lymph # Seg Neutrophils % 83.6 H Seg Neutrophils # 10.6 H PT INR D-Dimer VBG pH Sodium 135 L Potassium 3.4 L Chloride 97.5 L Carbon Dioxide 20 L BUN 5 L Creatinine Glucose 108 H Calcium 8.2 L Ferritin Lactate Dehydrogenase C-Reactive Protein Urine WBC (Auto) U Epithel Cells (Auto) 02/20/20 02/20/20 02/20/20 04:12 04:12 04:12 WBC RBC MCH Lymph % (Auto) Lymph # Seg Neutrophils % Seg Neutrophils # PT INR D-Dimer 837.36 H VBG pH Sodium Potassium 3.3 L Chloride Carbon Dioxide BUN 5 L Creatinine 0.6 L Glucose 105 H Calcium 8.1 L Ferritin 822.2 H Lactate Dehydrogenase 243 H C-Reactive Protein 22.00 H Urine WBC (Auto) U Epithel Cells (Auto) - Diagnostic Findings Chest x-ray: image reviewed CT scan - chest: image reviewed (as stated in HPI) Assessment and Plan 39 y/o obese female admitted with fever, abnormal CXT/CT with elevated inflammatory markers and lymphopenia, concern for COVID 19 vs post viral infection (flu) 1. Continue supplemental O2 to keep sats >88% 2. Follow up ID recs, spoke about Vanc as well 3. Currently on experimental therapy for COVID 19, ID considering IL6 inhibitor 4. No current indication for steroid therapy would not do in this setting 5. HOpeful that COVID 19 will be back in morning.
[2020-02-20] MEDS: ZINC SULFATE 220 MG CAP PO SCH (13:10)
--- NOTE | 2020-02-20 14:52 | Progress Note ---
Assessment and Plan Assessment and plan: 39-year-old -[place] female with no significant past medical history seen in the emergency room today complaining of fever and shortness of breath which has been ongoing for the past few days. She was recently diagnosed with flu about 2 weeks ago during which time she had a Tamiflu with significant improvement. She however started having fever and shortness of breath over the past few days. She indicates that her is being treated for similar symptoms at [place] and her young son is also said to have fever. She denies any recent travel. She denies any chest pain. However she has been having generalized body aches and pain, nausea and vomiting and occasional diarrhea. Evaluation in the emergency room patient said to have had a temperature of about 102 F, CBC shows leukocytosis, chemistry reveals hyponatremia and chest x-ray shows bilateral pneumonia. She was started on empiric IV antibiotics and also being ruled out for Covid 19. Patient informs me that her 's results was negative as he was also admitted at [facility]. Acute dyspnea secondary to pneumonia possible viral induced with underlying recent flu Suspected COVID 19 infection high suspicion with noted elevated ferritin and LDH and CRP P with bilateral infiltrates. Bilateral pneumonia Hypokalemia Hyponatremia Gastroenteritis with diarrhea now resolving Anxiety Plan 02/19: Patient still with tachypnea and tachycardia. CT scan evaluated significant reticular pattern infiltrate been noted. Pulmonary consulted discussed with them also considering a post influenza pneumonia possible MRSA. Defer to infectious disease for consideration of adding vancomycin. Continue supportive care Xanax for anxiety Continuos pulse oximetry and exercise oximetry Plaquenil and azithromycin started per protocol here at [facility] f/u COVID test - pending Continue COVID isolation precautions per [facility] protocol Obtain serial Ferritin, LDH, D-Dimer, CRP every 48h Daily EKG - QT monitoring - stop plaqenil if QT interval >500 Home quarantine for 14 days from initial symptoms (own bedroom, toilet, utensils), educate that viral shedding may last 21 days We will discharge if oxygen requirement continues to improve History Interval history: Patient seen and examined, remains with pleuritic chest pain and some shortness of breath but no new complaints. Appreciated the Xanax helps him sleep some. Hospitalist Physical - Physical exam Narrative exam: VITAL SIGNS: Reviewed. GENERAL: The patient appears normally developed, obese anxious appearing vital signs as documented. HEAD: No signs of head trauma. EYES: Pupils are equal. Extraocular motions intact. EARS: Hearing grossly intact. MOUTH: Oropharynx is normal. NECK: No adenopathy, no JVD. CHEST: Chest with diminished r breath sounds bilaterally with fine crackles at the base. No wheezes, rales, or rhonchi. CARDIAC: Regular rate and rhythm. S1 and S2, without murmurs, gallops, or rubs. VASCULAR: No Edema. Peripheral pulses normal and equal in all extremities. ABDOMEN: Soft, non tender and non distended. No rebound or guarding, and no masses palpated. Bowel Sounds normal. MUSCULOSKELETAL: Good range of motion of all major joints. Extremities without clubbing, cyanosis or edema. NEUROLOGIC EXAM: Alert and oriented x 3 No focal sensory or strength deficits. Speech normal. Follows commands. PSYCHIATRIC: Mood anxious . SKIN: detial exam as documented in skin assessment - Constitutional Vitals: Temp Pulse Resp BP Pulse Ox 98.2 F 89 18 123/83 94 02/20/20 11:30 02/20/20 11:30 02/20/20 11:30 02/20/20 11:30 02/20/20 11:30 General appearance: Present: no acute distress, well-nourished Results - Labs CBC & Chem 7: 02/20/20 04:12 02/20/20 04:12 Labs: Laboratory Last Values WBC 8.4 K/mm3 (4.5-11.0) 02/20/20 04:12 RBC 4.24 M/mm3 (3.65-5.03) 02/20/20 04:12 Hgb 11.6 gm/dl (10.1-14.3) 02/20/20 04:12 Hct 34.8 % (30.3-42.9) 02/20/20 04:12 MCV 82 fl (79-97) 02/20/20 04:12 MCH 27 pg (28-32) L 02/20/20 04:12 MCHC 33 % (30-34) 02/20/20 04:12 RDW 14.7 % (13.2-15.2) 02/20/20 04:12 Plt Count 272 K/mm3 (140-440) 02/20/20 04:12 Lymph % (Auto) 10.7 % (13.4-35.0) L 02/19/20 04:18 Edgar % (Auto) 5.5 % (0.0-7.3) 02/19/20 04:18 Eos % (Auto) 0.0 % (0.0-4.3) 02/19/20 04:18 Baso % (Auto) 0.2 % (0.0-1.8) 02/19/20 04:18 Lymph # 1.4 K/mm3 (1.2-5.4) 02/19/20 04:18 Edgar # 0.7 K/mm3 (0.0-0.8) 02/19/20 04:18 Eos # 0.0 K/mm3 (0.0-0.4) 02/19/20 04:18 Baso # 0.0 K/mm3 (0.0-0.1) 02/19/20 04:18 Seg Neutrophils % 83.6 % (40.0-70.0) H 02/19/20 04:18 Seg Neutrophils # 10.6 K/mm3 (1.8-7.7) H 02/19/20 04:18 PT 15.0 Sec. (12.2-14.9) H 02/17/20 20:16 INR 1.16 (0.87-1.13) H 02/17/20 20:16 D-Dimer 837.36 ng/mlDDU (0-234) H 02/20/20 04:12 VBG pH 7.543 (7.320-7.420) H 02/17/20 20:16 Sodium 137 mmol/L (137-145) 02/20/20 04:12 Potassium 3.3 mmol/L (3.6-5.0) L 02/20/20 04:12 Chloride 105.0 mmol/L (98-107) 02/20/20 04:12 Carbon Dioxide 23 mmol/L (22-30) 02/20/20 04:12 Anion Gap 12 mmol/L 02/20/20 04:12 BUN 5 mg/dL (7-17) L 02/20/20 04:12 Creatinine 0.6 mg/dL (0.7-1.2) L 02/20/20 04:12 Estimated GFR > 60 ml/min 02/20/20 04:12 BUN/Creatinine Ratio 8 % 02/20/20 04:12 Glucose 105 mg/dL (65-100) H 02/20/20 04:12 Lactic Acid 1.80 mmol/L (0.7-2.0) 02/17/20 20:16 Calcium 8.1 mg/dL (8.4-10.2) L 02/20/20 04:12 Magnesium 1.80 mg/dL (1.7-2.3) 02/19/20 04:18 Ferritin 822.2 ng/mL (13.0-400.0) H 02/20/20 04:12 Total Bilirubin 0.40 mg/dL (0.1-1.2) 02/17/20 20:16 AST 12 units/L (5-40) 02/17/20 20:16 ALT 15 units/L (7-56) 02/17/20 20:16 Alkaline Phosphatase 63 units/L (35-129) 02/17/20 20:16 Lactate Dehydrogenase 243 units/L (91-180) H 02/20/20 04:12 C-Reactive Protein 22.00 mg/dL (0.00-1.30) H 02/20/20 04:12 Total Protein 8.0 g/dL (6.3-8.2) 02/17/20 20:16 Albumin 4.0 g/dL (3.9-5) 02/17/20 20:16 Albumin/Globulin Ratio 1.0 % 02/17/20 20:16 Procalcitonin 0.39 ng/mL (<0.15) 02/20/20 04:12 HCG, Qual Negative (Negative) 02/17/20 20:16 Urine Color Kiesha (Yellow) 02/17/20 23:20 Urine Turbidity Turbid (Clear) 02/17/20 23:20 Urine pH 5.0 (5.0-7.0) 02/17/20 23:20 Ur Specific [place] 1.029 (1.003-1.030) 02/17/20 23:20 Urine Protein 100 mg/dl mg/dL (Negative) 02/17/20 23:20 Urine Glucose (UA) Neg mg/dL (Negative) 02/17/20 23:20 Urine Ketones 20 mg/dL (Negative) 02/17/20 23:20 Urine Blood Lg (Negative) 02/17/20 23:20 Urine Nitrite Neg (Negative) 02/17/20 23:20 Urine Bilirubin Neg (Negative) 02/17/20 23:20 Urine Urobilinogen < 2.0 mg/dL (<2.0) 02/17/20 23:20 Ur Leukocyte Esterase Tr (Negative) 02/17/20 23:20 Urine WBC (Auto) 36.0 /HPF (0.0-6.0) H 02/17/20 23:20 Urine RBC (Auto) 8.0 /HPF (0.0-6.0) 02/17/20 23:20 U Epithel Cells (Auto) 20.0 /HPF (0-13.0) H 02/17/20 23:20 Hyaline Casts 2 /LPF 02/17/20 23:20 Urine Mucus 3+ /HPF 02/17/20 23:20 Microbiology: Microbiology 02/18/20 Unknown Nares - Left MRSA Culture - Final 02/17/20 23:20 Urine,Clean Catch Urine Culture - Final 02/17/20 20:16 Peripheral/Venous Blood Culture - Preliminary NO GROWTH AFTER 48 HOURS 02/17/20 20:16 Peripheral/Venous Blood Culture - Preliminary NO GROWTH AFTER 48 HOURS Mack/IV: Voiding Method Toilet IV Catheter Type [Left Forearm INT / Saline Lock ] IV Catheter Type [Left Hand] Peripheral IV Active Medications - Current Medications Current Medications: Generic Name Dose Route Start Last Admin Trade Name Freq PRN Reason Stop Dose Admin Acetaminophen 650 mg 02/18/20 02:36 02/18/20 23:21 Tylenol PO 650 mg Q4H PRN Administration Pain MILD(1-3)/Fever >100.5/KIM Albuterol 2.5 mg 02/18/20 22:19 02/19/20 10:49 Proventil IH 2.5 mg Q4HRT PRN Administration Shortness Of Breath Albuterol/Ipratropium 1 ampul 02/19/20 14:45 02/20/20 10:10 Duoneb *Not For Prn Use* IH Not Given Q6HRT LINDA Alprazolam 0.25 mg 02/19/20 14:34 02/20/20 05:54 Xanax PO 0.25 mg Q8H PRN Administration Anxiety Cetirizine HCl 10 mg 02/18/20 17:00 02/20/20 10:17 Cetirizine PO 10 mg QDAY LINDA Administration Heparin Sodium (Porcine) 5,000 unit 02/18/20 14:00 02/20/20 13:10 Heparin SUB-Q 5,000 unit Q8HR LINDA Administration Hydroxychloroquine Sulfate 200 mg 02/20/20 10:00 02/20/20 10:17 Plaquenil PO 02/23/20 22:01 200 mg BID LINDA Administration Sodium Chloride 1,000 mls @ 125 mls/hr 02/18/20 02:45 02/20/20 10:16 Nacl 0.9% 1000 Ml IV 125 mls/hr DIRECT LINDA Administration Ceftriaxone Sodium 2 gm in 100 mls @ 200 mls/hr 02/18/20 10:00 02/20/20 10:16 Rocephin/Ns 2 Gm/100 Ml IV 200 mls/hr Q24HR LINDA Administration Protocol Magnesium Hydroxide 30 ml 02/18/20 02:36 Milk Of Magnesia PO Q4H PRN Constipation Ondansetron HCl 4 mg 02/18/20 02:36 02/18/20 05:14 Zofran IV 4 mg Q8H PRN Administration Nausea And Vomiting Oxycodone/Acetaminophen 1 tab 02/18/20 16:36 02/20/20 04:35 Percocet 5/325 PO 1 tab Q6H PRN Administration Pain, Moderate (4-6) Sodium Chloride 10 ml 02/18/20 10:00 02/20/20 10:17 Sodium Chloride Flush Syringe 10 Ml IV 10 ml BID LINDA Administration Sodium Chloride 10 ml 02/18/20 02:36 02/18/20 05:34 Sodium Chloride Flush Syringe 10 Ml IV 10 ml PRN PRN Administration LINE FLUSH Zinc Sulfate 220 mg 02/19/20 13:00 02/20/20 13:10 Zinc Sulfate PO 02/23/20 12:01 220 mg DAILY@1200 LINDA Administration
--- NOTE | 2020-02-20 17:40 | Consultation ---
History of Present Illness - Reason for Consult Consult date: 02/20/20 - History of Present Illness Review of Systems: Bold if positive, otherwise negative General: fevers, chills, rigors HEENT: visual disturbance, diplopia, eye pain Respiratory: cough, sputum, shortness of breath, HAYES Cardiovascular: chest pain, syncope Gastrointestinal: nausea, vomiting, diarrhea, abdominal pain Genitourinary: dysuria, hematuria, flank pain Musculoskeletal: neck pain, back pain, joint pain, edema Neurologic: headaches, seizures Hematologic: easy bruising or bleeding Endocrine: night sweats, acute weight loss Skin: rash, jaundice, redness Psychiatric: suicidal, homicidal ideation Gen: alert in NAD in [place] O2 2L Head, Ears, Nose: Normocephalic, atraumatic. Oral: Limited Cardiovascular: Limited evaluation due to PPE shortage Respiratory: deonna crackles GI: Limited evaluation due to PPE shortage Musculoskeletal: Limited evaluation due to PPE shortage Neurological: alert non focal Cultures: Blood culture 02/17/2020 no growth to date A/P: #Fever: likely due to bilateral pneumonia: #Bilateral pneumonia: high suspicion for COVID, noted Ferritin and LDH mildly elevated. CRP highly elevated. Chest x-ray shows bilateral patchy multifocal infiltrates. On 2L NC O2 #Acute resp failure: on NC O2 Recs: Continuos pulse oximetry Obtain COVID test ContinueCOVID isolationprecautions per [facility] protocol Start hydroxychloroquine 400 mg PO BID for 1 day then 200 mg PO BID for 4 days (total 5 days) with zinc 220 mg PO qday Start ceftriaxone and azithromycin total 5 days Obtain serial Ferritin, LDH, D-Dimer, CRP every 48h Home quarantine for 14 days from initial symptoms (own bedroom, toilet, utensils), educate that viral shedding may last 21 days Daily EKG - QT monitoring - stop plaqenil if QT interval >500 If oxygen requirement and markers are improving ok to d/c on home quarantine until COVID test is back Obtain exercise oximetry before discharge Thank you for the consult, we will continue to follow. Ingrid Zamora MD Infectious Diseases [employer] Operator [facility] ([facility]) M [phone] O [phone] Past History Past Medical History: No medical history Past Surgical History: No surgical history Social history: no significant social history Family history: no significant family history Medications and Allergies Allergies Allergy/AdvReac Type Severity Reaction Status Date / Time No Known Allergies Allergy Verified 02/17/20 22:25 Home Medications Medication Instructions Recorded Confirmed Last Taken Type Ipratropium/Albuterol Sulfate 2 spray IH QID PRN 02/19/20 02/19/20 Unknown History [Combivent Respimat] Active Meds: Active Medications Acetaminophen (Tylenol) 650 mg PO Q4H PRN PRN Reason: Pain MILD(1-3)/Fever >100.5/KIM Last Admin: 02/18/20 23:21 Dose: 650 mg Documented by: Albuterol (Proventil) 2.5 mg IH Q4HRT PRN PRN Reason: Shortness Of Breath Last Admin: 02/19/20 10:49 Dose: 2.5 mg Documented by: Albuterol/Ipratropium (Duoneb *Not For Prn Use*) 1 ampul IH Q6HRT [facility] Last Admin: 02/20/20 10:10 Dose: Not Given Documented by: Alprazolam (Xanax) 0.25 mg PO Q8H PRN PRN Reason: Anxiety Last Admin: 02/20/20 05:54 Dose: 0.25 mg Documented by: Cetirizine HCl (Cetirizine) 10 mg PO QDAY [facility] Last Admin: 02/20/20 10:17 Dose: 10 mg Documented by: Heparin Sodium (Porcine) (Heparin) 5,000 unit SUB-Q Q8HR [facility] Last Admin: 02/20/20 13:10 Dose: 5,000 unit Documented by: Hydroxychloroquine Sulfate (Plaquenil) 200 mg PO BID LINDA Stop: 02/23/20 22:01 Last Admin: 02/20/20 10:17 Dose: 200 mg Documented by: Sodium Chloride (Nacl 0.9% 1000 Ml) 1,000 mls @ 125 mls/hr IV DIRECT [facility] Last Admin: 02/20/20 10:16 Dose: 125 mls/hr Documented by: Ceftriaxone Sodium (Rocephin/Ns 2 Gm/100 Ml) 2 gm in 100 mls @ 200 mls/hr IV Q24HR LINDA; Protocol Last Admin: 02/20/20 10:16 Dose: 200 mls/hr Documented by: Magnesium Hydroxide (Milk Of Magnesia) 30 ml PO Q4H PRN PRN Reason: Constipation Ondansetron HCl (Zofran) 4 mg IV Q8H PRN PRN Reason: Nausea And Vomiting Last Admin: 02/18/20 05:14 Dose: 4 mg Documented by: Oxycodone/Acetaminophen (Percocet 5/325) 1 tab PO Q6H PRN PRN Reason: Pain, Moderate (4-6) Last Admin: 02/20/20 17:22 Dose: 1 tab Documented by: Sodium Chloride (Sodium Chloride Flush Syringe 10 Ml) 10 ml IV BID [facility] Last Admin: 02/20/20 10:17 Dose: 10 ml Documented by: Sodium Chloride (Sodium Chloride Flush Syringe 10 Ml) 10 ml IV PRN PRN PRN Reason: LINE FLUSH Last Admin: 02/18/20 05:34 Dose: 10 ml Documented by: Zinc Sulfate (Zinc Sulfate) 220 mg PO DAILY@1200 LINDA Stop: 02/23/20 12:01 Last Admin: 02/20/20 13:10 Dose: 220 mg Documented by: Physical Examination - Constitutional Vitals: Vital Signs Temp Pulse Resp BP Pulse Ox 98.4 F 85 18 123/83 99 02/20/20 14:00 02/20/20 14:00 02/20/20 17:26 02/20/20 11:30 02/20/20 14:00 Temperature -Last 24 Hours Temperature 98.4 F Temperature 98.2 F Temperature 98.5 F Temperature 99.2 F Results - Labs CBC & Chem 7: 02/20/20 04:12 02/20/20 04:12 Labs: Abnormal lab results 02/20/20 02/20/20 02/20/20 Range/Units 04:12 04:12 04:12 MCH 27 L (28-32) pg D-Dimer 837.36 H (0-234) ng/mlDDU Potassium 3.3 L (3.6-5.0) mmol/L BUN 5 L (7-17) mg/dL Creatinine 0.6 L (0.7-1.2) mg/dL Glucose 105 H (65-100) mg/dL Calcium 8.1 L (8.4-10.2) mg/dL Ferritin (13.0-400.0) ng/mL Lactate Dehydrogenase 243 H (91-180) units/L C-Reactive Protein 22.00 H (0.00-1.30) mg/dL 02/20/20 Range/Units 04:12 MCH (28-32) pg D-Dimer (0-234) ng/mlDDU Potassium (3.6-5.0) mmol/L BUN (7-17) mg/dL Creatinine (0.7-1.2) mg/dL Glucose (65-100) mg/dL Calcium (8.4-10.2) mg/dL Ferritin 822.2 H (13.0-400.0) ng/mL Lactate Dehydrogenase (91-180) units/L C-Reactive Protein (0.00-1.30) mg/dL
[2020-02-21] MEDS: IPRATROPIUM/ALBUTEROL SULFATE 3 ML AMPUL.NEB IH SCH ×5 (01:45→20:16)
[2020-02-21] MEDS: SODIUM CHLORIDE 0.9% 1000 ML 1,000 ML IV SCH ×2 (01:50→10:00)
[2020-02-21] MEDS: oxyCODONE /ACETAMINOPHEN 5-325MG TAB PO PRN ×3 (05:30→23:24)
[2020-02-21] MEDS: HEPARIN 5,000 UNIT/1 ML VIAL SUB-Q SCH ×3 (05:35→21:35)
[2020-02-21] MEDS: CETIRIZINE 10 MG TAB PO SCH (10:00)
[2020-02-21] MEDS: HYDROXYCHLOROQUINE 200 MG TAB PO SCH ×2 (10:00→21:35)
[2020-02-21] MEDS: cefTRIAXone/NS 2 GM/100 ML 2 GM/100 ML BAG IV SCH (10:00)
--- NOTE | 2020-02-21 11:06 | Progress Note ---
Assessment and Plan 39 y/o obese female admitted with fever, abnormal CXT/CT with elevated inflammatory markers and lymphopenia, concern for COVID 19 vs post viral infection (flu) 1. Continue supplemental O2 to keep sats >88% 2. Follow up ID recs, spoke about Vanc as well. Will see if they consider giving today. 3. Currently on experimental therapy for COVID 19, ID considering IL6 inhibitor 4. No current indication for steroid therapy would not do in this setting 5. HOpeful that COVID 19 will be back in morning or hopefully later today. Should have been updated by now 6. Repeat CXR ordered for today. Subjective Date of service: 02/21/20 Principal diagnosis: pneumonia Interval history: No acute events. O2 requirement not documented yet. Objective Vital Signs - 12hr 02/20/20 02/21/20 02/21/20 23:43 04:25 05:30 Temperature 98.0 F Pulse Rate 84 Respiratory 18 18 18 Rate Blood Pressure 128/78 O2 Sat by Pulse 93 Oximetry CBC and BMP: 02/20/20 04:12 02/20/20 04:12 ABG, PT/INR, D-dimer: PT/INR, D-dimer PT 15.0 Sec. (12.2-14.9) H 02/17/20 20:16 INR 1.16 (0.87-1.13) H 02/17/20 20:16 D-Dimer 837.36 ng/mlDDU (0-234) H 02/20/20 04:12 Abnormal lab findings: Abnormal Labs 02/17/20 02/17/20 02/17/20 20:16 20:16 20:16 WBC 15.6 H RBC 5.24 H MCH 27 L Lymph % (Auto) 5.1 L Lymph # 0.8 L Seg Neutrophils % 89.8 H Seg Neutrophils # 14.0 H PT 15.0 H INR 1.16 H D-Dimer VBG pH Sodium 129 L Potassium 3.2 L Chloride 92.0 L Carbon Dioxide 18 L BUN Creatinine Glucose 152 H Calcium Ferritin Lactate Dehydrogenase C-Reactive Protein Urine WBC (Auto) U Epithel Cells (Auto) 02/17/20 02/17/20 02/17/20 20:16 23:20 23:25 WBC RBC MCH Lymph % (Auto) Lymph # Seg Neutrophils % Seg Neutrophils # PT INR D-Dimer VBG pH 7.543 H Sodium Potassium Chloride Carbon Dioxide BUN Creatinine Glucose Calcium Ferritin Lactate Dehydrogenase 201 H C-Reactive Protein 23.70 H Urine WBC (Auto) 36.0 H U Epithel Cells (Auto) 20.0 H 02/18/20 02/18/20 02/18/20 03:03 03:03 03:03 WBC RBC MCH Lymph % (Auto) Lymph # Seg Neutrophils % Seg Neutrophils # PT INR D-Dimer 322.27 H VBG pH Sodium Potassium Chloride Carbon Dioxide BUN Creatinine Glucose Calcium Ferritin 416.9 H Lactate Dehydrogenase 208 H C-Reactive Protein Urine WBC (Auto) U Epithel Cells (Auto) 02/19/20 02/19/20 02/20/20 04:18 04:18 04:12 WBC 12.7 H RBC MCH 27 L 27 L Lymph % (Auto) 10.7 L Lymph # Seg Neutrophils % 83.6 H Seg Neutrophils # 10.6 H PT INR D-Dimer VBG pH Sodium 135 L Potassium 3.4 L Chloride 97.5 L Carbon Dioxide 20 L BUN 5 L Creatinine Glucose 108 H Calcium 8.2 L Ferritin Lactate Dehydrogenase C-Reactive Protein Urine WBC (Auto) U Epithel Cells (Auto) 02/20/20 02/20/20 02/20/20 04:12 04:12 04:12 WBC RBC MCH Lymph % (Auto) Lymph # Seg Neutrophils % Seg Neutrophils # PT INR D-Dimer 837.36 H VBG pH Sodium Potassium 3.3 L Chloride Carbon Dioxide BUN 5 L Creatinine 0.6 L Glucose 105 H Calcium 8.1 L Ferritin 822.2 H Lactate Dehydrogenase 243 H C-Reactive Protein 22.00 H Urine WBC (Auto) U Epithel Cells (Auto)
--- NOTE | 2020-02-21 12:36 | Progress Note ---
Assessment and Plan Assessment and plan: 39-year-old -F[place]ian female with no significant past medical history seen in the emergency room today complaining of fever and shortness of breath which has been ongoing for the past few days. She was recently diagnosed with flu about 2 weeks ago during which time she had a Tamiflu with significant improvement. She however started having fever and shortness of breath over the past few days. She indicates that her is being treated for similar symptoms at [place] and her young son is also said to have fever. She denies any recent travel. She denies any chest pain. However she has been having generalized body aches and pain, nausea and vomiting and occasional diarrhea. Evaluation in the emergency room patient said to have had a temperature of about 102 F, CBC shows leukocytosis, chemistry reveals hyponatremia and chest x-ray shows bilateral pneumonia. She was started on empiric IV antibiotics and also being ruled out for Covid 19. Patient informs me that her 's results was negative as he was also admitted at [facility]. Acute dyspnea secondary to pneumonia possible viral induced with underlying recent flu COVID 19 test results came back negative although high suspicion with noted elevated ferritin and LDH and CRP with bilateral infiltrates.? False negative. There is good chance that her results is actually negative as her at other hospital also tested negative. Bilateral pneumonia Hypokalemia Hyponatremia Gastroenteritis with diarrhea now resolving Anxiety Plan 4/2: Patient still with tachypnea and tachycardia. CT scan evaluated significant reticular pattern infiltrate been noted. Pulmonary consulted discu ssed with them also considering a post influenza pneumonia possible MRSA. Defer to infectious disease for consideration of adding vancomycin. 4/3: Continue supportive care due to concern as noted above we will continue patient on isolation and treat patient as if she was positive and completed kyle tment. We will also recommend self-isolation once her pulmonary status improved. And encourage ambulation in the room. Anticipate discharge in 24 to 48 hours I also discussed with ID will be broadening her antibiotic coverage to consider post influenza pneumonia Continue supportive care Xanax for anxiety Continuos pulse oximetry and exercise oximetry Plaquenil and azithromycin started per protocol here at [facility] f/u COVID test - pending Continue COVID isolation precautions per [facility] protocol Obtain serial Ferritin, LDH, D-Dimer, CRP every 48h Daily EKG - QT monitoring - stop plaqenil if QT interval >500 Home quarantine for 14 days from initial symptoms (own bedroom, toilet, utensils), educate that viral shedding may last 21 days We will discharge if oxygen requirement continues to improve History Interval history: Patient seen and examined, appears to be clinically improving but still reports pleuritic chest pain and dyspnea on exertion. She is a bit anxious. Hospitalist Physical - Physical exam Narrative exam: VITAL SIGNS: Reviewed. GENERAL: The patient appears normally developed, obese, anxious appearing vital signs as documented. HEAD: No signs of head trauma. EYES: Pupils are equal. Extraocular motions intact. EARS: Hearing grossly intact. MOUTH: Oropharynx is normal. NECK: No adenopathy, no JVD. CHEST: Chest with diminished r breath sounds bilaterally with fine crackles at the base. No wheezes, rales, or rhonchi. CARDIAC: Regular rate and rhythm. S1 and S2, without murmurs, gallops, or rubs. VASCULAR: No Edema. Peripheral pulses normal and equal in all extremities. ABDOMEN: Soft, non tender and non distended. No rebound or guarding, and no masses palpated. Bowel Sounds normal. MUSCULOSKELETAL: Good range of motion of all major joints. Extremities without clubbing, cyanosis or edema. NEUROLOGIC EXAM: Alert and oriented x 3 No focal sensory or strength deficits. Speech normal. Follows commands. PSYCHIATRIC: Mood anxious . SKIN: detail exam as documented in skin assessment - Constitutional Vitals: Temp Pulse Resp BP Pulse Ox 98.0 F 84 18 128/78 93 02/21/20 04:25 02/21/20 04:25 02/21/20 08:00 02/21/20 04:25 02/21/20 04:25 General appearance: Present: no acute distress, well-nourished Results - Labs CBC & Chem 7: 02/20/20 04:12 02/20/20 04:12 Labs: Laboratory Last Values WBC 8.4 K/mm3 (4.5-11.0) 02/20/20 04:12 RBC 4.24 M/mm3 (3.65-5.03) 02/20/20 04:12 Hgb 11.6 gm/dl (10.1-14.3) 02/20/20 04:12 Hct 34.8 % (30.3-42.9) 02/20/20 04:12 MCV 82 fl (79-97) 02/20/20 04:12 MCH 27 pg (28-32) L 02/20/20 04:12 MCHC 33 % (30-34) 02/20/20 04:12 RDW 14.7 % (13.2-15.2) 02/20/20 04:12 Plt Count 272 K/mm3 (140-440) 02/20/20 04:12 Lymph % (Auto) 10.7 % (13.4-35.0) L 02/19/20 04:18 [place] % (Auto) 5.5 % (0.0-7.3) 02/19/20 04:18 Eos % (Auto) 0.0 % (0.0-4.3) 02/19/20 04:18 Baso % (Auto) 0.2 % (0.0-1.8) 02/19/20 04:18 Lymph # 1.4 K/mm3 (1.2-5.4) 02/19/20 04:18 [place] # 0.7 K/mm3 (0.0-0.8) 02/19/20 04:18 Eos # 0.0 K/mm3 (0.0-0.4) 02/19/20 04:18 Baso # 0.0 K/mm3 (0.0-0.1) 02/19/20 04:18 Seg Neutrophils % 83.6 % (40.0-70.0) H 02/19/20 04:18 Seg Neutrophils # 10.6 K/mm3 (1.8-7.7) H 02/19/20 04:18 PT 15.0 Sec. (12.2-14.9) H 02/17/20 20:16 INR 1.16 (0.87-1.13) H 02/17/20 20:16 D-Dimer 837.36 ng/mlDDU (0-234) H 02/20/20 04:12 VBG pH 7.543 (7.320-7.420) H 02/17/20 20:16 Sodium 137 mmol/L (137-145) 02/20/20 04:12 Potassium 3.3 mmol/L (3.6-5.0) L 02/20/20 04:12 Chloride 105.0 mmol/L (98-107) 02/20/20 04:12 Carbon Dioxide 23 mmol/L (22-30) 02/20/20 04:12 Anion Gap 12 mmol/L 02/20/20 04:12 BUN 5 mg/dL (7-17) L 02/20/20 04:12 Creatinine 0.6 mg/dL (0.7-1.2) L 02/20/20 04:12 Estimated GFR > 60 ml/min 02/20/20 04:12 BUN/Creatinine Ratio 8 % 02/20/20 04:12 Glucose 105 mg/dL (65-100) H 02/20/20 04:12 Lactic Acid 1.80 mmol/L (0.7-2.0) 02/17/20 20:16 Calcium 8.1 mg/dL (8.4-10.2) L 02/20/20 04:12 Magnesium 1.80 mg/dL (1.7-2.3) 02/19/20 04:18 Ferritin 822.2 ng/mL (13.0-400.0) H 02/20/20 04:12 Total Bilirubin 0.40 mg/dL (0.1-1.2) 02/17/20 20:16 AST 12 units/L (5-40) 02/17/20 20:16 ALT 15 units/L (7-56) 02/17/20 20:16 Alkaline Phosphatase 63 units/L (35-129) 02/17/20 20:16 Lactate Dehydrogenase 243 units/L (91-180) H 02/20/20 04:12 C-Reactive Protein 22.00 mg/dL (0.00-1.30) H 02/20/20 04:12 Total Protein 8.0 g/dL (6.3-8.2) 02/17/20 20:16 Albumin 4.0 g/dL (3.9-5) 02/17/20 20:16 Albumin/Globulin Ratio 1.0 % 02/17/20 20:16 Procalcitonin 0.39 ng/mL (<0.15) 02/20/20 04:12 HCG, Qual Negative (Negative) 02/17/20 20:16 Urine Color Kiesha (Yellow) 02/17/20 23:20 Urine Turbidity Turbid (Clear) 02/17/20 23:20 Urine pH 5.0 (5.0-7.0) 02/17/20 23:20 Ur Specific [place] 1.029 (1.003-1.030) 02/17/20 23:20 Urine Protein 100 mg/dl mg/dL (Negative) 02/17/20 23:20 Urine Glucose (UA) Neg mg/dL (Negative) 02/17/20 23:20 Urine Ketones 20 mg/dL (Negative) 02/17/20 23:20 Urine Blood Lg (Negative) 02/17/20 23:20 Urine Nitrite Neg (Negative) 02/17/20 23:20 Urine Bilirubin Neg (Negative) 02/17/20 23:20 Urine Urobilinogen < 2.0 mg/dL (<2.0) 02/17/20 23:20 Ur Leukocyte Esterase Tr (Negative) 02/17/20 23:20 Urine WBC (Auto) 36.0 /HPF (0.0-6.0) H 02/17/20 23:20 Urine RBC (Auto) 8.0 /HPF (0.0-6.0) 02/17/20 23:20 U Epithel Cells (Auto) 20.0 /HPF (0-13.0) H 02/17/20 23:20 Hyaline Casts 2 /LPF 02/17/20 23:20 Urine Mucus 3+ /HPF 02/17/20 23:20 Microbiology: Microbiology 02/17/20 20:16 Peripheral/Venous Blood Culture - Preliminary NO GROWTH AFTER 72 HOURS 02/17/20 20:16 Peripheral/Venous Blood Culture - Preliminary NO GROWTH AFTER 72 HOURS 02/18/20 Unknown Nares - Left MRSA Culture - Final 02/17/20 23:20 Urine,Clean Catch Urine Culture - Final Mack/IV: Voiding Method Toilet IV Catheter Type [Left Forearm INT / Saline Lock ] IV Catheter Type [Left Hand] Peripheral IV Active Medications - Current Medications Current Medications: Generic Name Dose Route Start Last Admin Trade Name Freq PRN Reason Stop Dose Admin Acetaminophen 650 mg 02/18/20 02:36 02/18/20 23:21 Tylenol PO 650 mg Q4H PRN Administration Pain MILD(1-3)/Fever >100.5/KIM Albuterol 2.5 mg 02/18/20 22:19 02/19/20 10:49 Proventil IH 2.5 mg Q4HRT PRN Administration Shortness Of Breath Albuterol/Ipratropium 1 ampul 02/19/20 14:45 02/21/20 10:17 Duoneb *Not For Prn Use* IH 1 ampul Q6HRT LINDA Administration Alprazolam 0.25 mg 02/19/20 14:34 02/20/20 21:58 Xanax PO 0.25 mg Q8H PRN Administration Anxiety Cetirizine HCl 10 mg 02/18/20 17:00 02/21/20 10:00 Cetirizine PO 10 mg QDAY LINDA Administration Heparin Sodium (Porcine) 5,000 unit 02/18/20 14:00 02/21/20 05:35 Heparin SUB-Q 5,000 unit Q8HR LINDA Administration Hydroxychloroquine Sulfate 200 mg 02/20/20 10:00 02/21/20 10:00 Plaquenil PO 02/23/20 22:01 200 mg BID LINDA Administration Ceftriaxone Sodium 2 gm in 100 mls @ 200 mls/hr 02/18/20 10:00 02/21/20 10:00 Rocephin/Ns 2 Gm/100 Ml IV 200 mls/hr Q24HR LINDA Administration Protocol Magnesium Hydroxide 30 ml 02/18/20 02:36 Milk Of Magnesia PO Q4H PRN Constipation Ondansetron HCl 4 mg 02/18/20 02:36 02/18/20 05:14 Zofran IV 4 mg Q8H PRN Administration Nausea And Vomiting Oxycodone/Acetaminophen 1 tab 02/18/20 16:36 02/21/20 05:30 Percocet 5/325 PO 1 tab Q6H PRN Administration Pain, Moderate (4-6) Sodium Chloride 10 ml 02/18/20 10:00 02/21/20 10:01 Sodium Chloride Flush Syringe 10 Ml IV 10 ml BID LINDA Administration Sodium Chloride 10 ml 02/18/20 02:36 02/18/20 05:34 Sodium Chloride Flush Syringe 10 Ml IV 10 ml PRN PRN Administration LINE FLUSH Zinc Sulfate 220 mg 02/19/20 13:00 02/20/20 13:10 Zinc Sulfate PO 02/23/20 12:01 220 mg DAILY@1200 LINDA Administration
--- NOTE | 2020-02-21 12:48 | XRay Report ---
CHEST 1 VIEW 02/21/2020 11:38 AM INDICATION / CLINICAL INFORMATION: Hypoxemia. COMPARISON: Chest x-ray on 02/17/2020 FINDINGS: SUPPORT DEVICES: None. HEART / MEDIASTINUM: Stable mild cardiomegaly. LUNGS / PLEURA: Stable diffuse bilateral reticulonodular interstitial opacification without focal con solidation. No pneumothorax. ADDITIONAL FINDINGS: No significant additional findings. IMPRESSION: 1. No significant change in appearance of the chest compared with 02/17/2020. Signer Name: Vj Mendieta MD Signed: 02/21/2020 12:44 PM Workstation Name: [id number]
[2020-02-21] MEDS: ZINC SULFATE 220 MG CAP PO SCH (13:07)
[2020-02-21] MEDS: MAGNESIUM HYDROXIDE (MOM) ORAL LIQD UDC PO PRN (13:13)
[2020-02-21] MEDS ORDERED: VANCOMYCIN/NS 1 GM/250 ML 1 GM/250 ML BAG IV SCH (16:00)
--- NOTE | 2020-02-21 16:00 | Progress Note ---
Assessment and Plan Cultures: Blood culture 02/17/2020 no growth to date A/P: 39 y/o female with no significant past medical history admitted on 02/17/2020 due to a week history of fever and shortness of breath associated with body aches, nausea, vomiting and some diarrhea. 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 CRP highly elevated. Chest x-ray shows bilateral patchy multifocal infiltrates. On 3L NC O2 #Acute resp failure: on NC O2 #N/D/diarrhea: COVID is a pneumo-enteric virus, can cause pneumonia and diarrhea Recs: Continuos pulse oximetry and exercise oximetry ContinueCOVID isolationprecautions per [facility] protocol due to high clinical suspicion Cannot re-test as testing is only for new admission with severe pneumonia given lack of resources Continue hydroxychloroquine 400 mg PO BID for 1 day then 200 mg PO BID for 4 days (total 5 days) with zinc 220 mg PO qday Continue ceftriaxone add vancomycin Check MRSA pcr Obtain serial Ferritin, LDH, D-Dimer, CRP Home quarantine for 14 days from initial symptoms (own bedroom, toilet, utensils), educate that viral shedding may last 21 days Daily EKG - QT monitoring - stop plaquenil if QT interval >500 Thank you for the consult, we will continue to follow. Ingrid Zamora MD Infectious Diseases [facility] ([facility]) M [phone] O [phone] Subjective Date of service: 02/21/20 Principal diagnosis: pneumonia Interval history: Remains in [place] O2 feels some better no fever x 2 days Objective - Exam Narrative Exam: Gen: alert in NAD in NC O2 2L Head, Ears, Nose: Normocephalic, atraumatic. Oral: Limited Cardiovascular: Limited evaluation due to PPE shortage Respiratory: deonna crackles GI: Limited evaluation due to PPE shortage Musculoskeletal: Limited evaluation due to PPE shortage Neurological: alert non focal - Constitutional Vitals: Vital Signs Temp Pulse Resp BP Pulse Ox 98.0 F 84 18 128/78 93 02/21/20 04:25 02/21/20 04:25 02/21/20 08:00 02/21/20 04:25 02/21/20 04:25 Temperature -Last 24 Hours Temperature 98.0 F Temperature 98.4 F Temperature 98.4 F - Labs CBC & Chem 7: 02/20/20 04:12 02/20/20 04:12
[2020-02-21] MEDS ORDERED: VANCOMYCIN 2,000 MG in SODIUM CHLORIDE 0.9% 500 ML 500 ML IV ONE (17:00)
[2020-02-21] MEDS: ALPRAZolam 0.25 MG TAB PO PRN (23:24)
[2020-02-22] MEDS: VANCOMYCIN 1,500 MG in SODIUM CHLORIDE 0.9% 500 ML 500 ML IV SCH ×3 (00:38→17:08)
[2020-02-22] MEDS: IPRATROPIUM/ALBUTEROL SULFATE 3 ML AMPUL.NEB IH SCH ×4 (02:39→22:31)
[2020-02-22] MEDS: HEPARIN 5,000 UNIT/1 ML VIAL SUB-Q SCH ×3 (06:06→21:42)
--- NOTE | 2020-02-22 08:36 | Progress Note ---
Assessment and Plan Assessment and plan: 39-year-old -[place] female with no significant past medical history seen in the emergency room today complaining of fever and shortness of breath which has been ongoing for the past few days. She was recently diagnosed with flu about 2 weeks ago during which time she had a Tamiflu with significant improvement. She however started having fever and shortness of breath over the past few days. She indicates that her is being treated for similar symptoms at [place] and her young son is also said to have fever. She denies any recent travel. She denies any chest pain. However she has been having generalized body aches and pain, nausea and vomiting and occasional diarrhea. Evaluation in the emergency room patient said to have had a temperature of about 102 F, CBC shows leukocytosis, chemistry reveals hyponatremia and chest x-ray shows bilateral pneumonia. She was started on empiric IV antibiotics and also being ruled out for Covid 19. Patient informs me that her 's results was negative as he was also admitted at [facility]. Acute dyspnea secondary to pneumonia possible viral induced with underlying recent flu COVID 19 test results came back negative although high suspicion with noted elevated ferritin and LDH and CRP with bilateral infiltrates.? False negative. There is good chance that her results is actually negative as her at other hospital also tested negative. Bilateral pneumonia Hypokalemia Hyponatremia Gastroenteritis with diarrhea now resolving Anxiety Plan 4/2: Patient still with tachypnea and tachycardia. CT scan evaluated significant reticular pattern infiltrate been noted. Pulmonary consulted discu ssed with them also considering a post influenza pneumonia possible MRSA. Defer to infectious disease for consideration of adding vancomycin. 4/3: Continue supportive care due to concern as noted above we will continue patient on isolation and treat patient as if she was positive and completed kyle tment. We will also recommend self-isolation once her pulmonary status improved. And encourage ambulation in the room. Anticipate discharge in 24 to 48 hours I also discussed with ID will be broadening her antibiotic coverage to consider post influenza pneumonia 4/4: Now on Vancomyin, continues to improve, anticipate completion of the Hydroxychloroquin and Zinc AND Ceftriaxone today. Await PCR MRSA. Start weaning oxygen. Although noted increasing d-dimer although markers are improving. She has been ambulating she is on DVT prophylaxis. We will continue to watch with weaning oxygen. Continue supportive care Xanax for anxiety Continuos pulse oximetry and exercise oximetry Plaquenil and azithromycin started per protocol here at [facility] f/u COVID test - pending Continue COVID isolation precautions per [facility] protocol Obtain serial Ferritin, LDH, D-Dimer, CRP every 48h Daily EKG - QT monitoring - stop plaqenil if QT interval >500 Home quarantine for 14 days from initial symptoms (own bedroom, toilet, utensils), educate that viral shedding may last 21 days We will discharge if oxygen requirement continues to improve History Interval history: Patient seen and examined, appears to be clinically improving chest pain not as much as previously reported. Nurse was able to wean down oxygen to 4 L today. She has been ambulating. Hospitalist Physical - Physical exam Narrative exam: VITAL SIGNS: Reviewed. GENERAL: The patient appears normally developed, obese, anxious appearing vital signs as documented. HEAD: No signs of head trauma. EYES: Pupils are equal. Extraocular motions intact. EARS: Hearing grossly intact. MOUTH: Oropharynx is normal. NECK: No adenopathy, no JVD. CHEST: Chest with diminished r breath sounds bilaterally with fine crackles at the base. No wheezes, rales, or rhonchi. CARDIAC: Regular rate and rhythm. S1 and S2, without murmurs, gallops, or rubs. VASCULAR: No Edema. Peripheral pulses normal and equal in all extremities. ABDOMEN: Soft, non tender and non distended. No rebound or guarding, and no masses palpated. Bowel Sounds normal. MUSCULOSKELETAL: Good range of motion of all major joints. Extremities without clubbing, cyanosis or edema. NEUROLOGIC EXAM: Alert and oriented x 3 No focal sensory or strength deficits. Speech normal. Follows commands. PSYCHIATRIC: Mood anxious . SKIN: detail exam as documented in skin assessment - Constitutional Vitals: Temp Pulse Resp BP Pulse Ox 98.0 F 74 18 122/76 90 02/22/20 06:19 02/22/20 06:19 02/22/20 06:19 02/22/20 06:19 02/22/20 06:19 General appearance: Present: no acute distress, well-nourished Results - Labs CBC & Chem 7: 02/20/20 04:12 02/20/20 04:12 Labs: Laboratory Last Values WBC 8.4 K/mm3 (4.5-11.0) 02/20/20 04:12 RBC 4.24 M/mm3 (3.65-5.03) 02/20/20 04:12 Hgb 11.6 gm/dl (10.1-14.3) 02/20/20 04:12 Hct 34.8 % (30.3-42.9) 02/20/20 04:12 MCV 82 fl (79-97) 02/20/20 04:12 MCH 27 pg (28-32) L 02/20/20 04:12 MCHC 33 % (30-34) 02/20/20 04:12 RDW 14.7 % (13.2-15.2) 02/20/20 04:12 Plt Count 272 K/mm3 (140-440) 02/20/20 04:12 Lymph % (Auto) 10.7 % (13.4-35.0) L 02/19/20 04:18 [place] % (Auto) 5.5 % (0.0-7.3) 02/19/20 04:18 Eos % (Auto) 0.0 % (0.0-4.3) 02/19/20 04:18 Baso % (Auto) 0.2 % (0.0-1.8) 02/19/20 04:18 Lymph # 1.4 K/mm3 (1.2-5.4) 02/19/20 04:18 [place] # 0.7 K/mm3 (0.0-0.8) 02/19/20 04:18 Eos # 0.0 K/mm3 (0.0-0.4) 02/19/20 04:18 Baso # 0.0 K/mm3 (0.0-0.1) 02/19/20 04:18 Seg Neutrophils % 83.6 % (40.0-70.0) H 02/19/20 04:18 Seg Neutrophils # 10.6 K/mm3 (1.8-7.7) H 02/19/20 04:18 PT 15.0 Sec. (12.2-14.9) H 02/17/20 20:16 INR 1.16 (0.87-1.13) H 02/17/20 20:16 D-Dimer 837.36 ng/mlDDU (0-234) H 02/20/20 04:12 VBG pH 7.543 (7.320-7.420) H 02/17/20 20:16 Sodium 137 mmol/L (137-145) 02/20/20 04:12 Potassium 3.3 mmol/L (3.6-5.0) L 02/20/20 04:12 Chloride 105.0 mmol/L (98-107) 02/20/20 04:12 Carbon Dioxide 23 mmol/L (22-30) 02/20/20 04:12 Anion Gap 12 mmol/L 02/20/20 04:12 BUN 5 mg/dL (7-17) L 02/20/20 04:12 Creatinine 0.6 mg/dL (0.7-1.2) L 02/20/20 04:12 Estimated GFR > 60 ml/min 02/20/20 04:12 BUN/Creatinine Ratio 8 % 02/20/20 04:12 Glucose 105 mg/dL (65-100) H 02/20/20 04:12 Lactic Acid 1.80 mmol/L (0.7-2.0) 02/17/20 20:16 Calcium 8.1 mg/dL (8.4-10.2) L 02/20/20 04:12 Magnesium 1.80 mg/dL (1.7-2.3) 02/19/20 04:18 Ferritin 822.2 ng/mL (13.0-400.0) H 02/20/20 04:12 Total Bilirubin 0.40 mg/dL (0.1-1.2) 02/17/20 20:16 AST 12 units/L (5-40) 02/17/20 20:16 ALT 15 units/L (7-56) 02/17/20 20:16 Alkaline Phosphatase 63 units/L (35-129) 02/17/20 20:16 Lactate Dehydrogenase 243 units/L (91-180) H 02/20/20 04:12 C-Reactive Protein 22.00 mg/dL (0.00-1.30) H 02/20/20 04:12 Total Protein 8.0 g/dL (6.3-8.2) 02/17/20 20:16 Albumin 4.0 g/dL (3.9-5) 02/17/20 20:16 Albumin/Globulin Ratio 1.0 % 02/17/20 20:16 Procalcitonin 0.39 ng/mL (<0.15) 02/20/20 04:12 HCG, Qual Negative (Negative) 02/17/20 20:16 Urine Color Kiesha (Yellow) 02/17/20 23:20 Urine Turbidity Turbid (Clear) 02/17/20 23:20 Urine pH 5.0 (5.0-7.0) 02/17/20 23:20 Ur Specific [place] 1.029 (1.003-1.030) 02/17/20 23:20 Urine Protein 100 mg/dl mg/dL (Negative) 02/17/20 23:20 Urine Glucose (UA) Neg mg/dL (Negative) 02/17/20 23:20 Urine Ketones 20 mg/dL (Negative) 02/17/20 23:20 Urine Blood Lg (Negative) 02/17/20 23:20 Urine Nitrite Neg (Negative) 02/17/20 23:20 Urine Bilirubin Neg (Negative) 02/17/20 23:20 Urine Urobilinogen < 2.0 mg/dL (<2.0) 02/17/20 23:20 Ur Leukocyte Esterase Tr (Negative) 02/17/20 23:20 Urine WBC (Auto) 36.0 /HPF (0.0-6.0) H 02/17/20 23:20 Urine RBC (Auto) 8.0 /HPF (0.0-6.0) 02/17/20 23:20 U Epithel Cells (Auto) 20.0 /HPF (0-13.0) H 02/17/20 23:20 Hyaline Casts 2 /LPF 02/17/20 23:20 Urine Mucus 3+ /HPF 02/17/20 23:20 Miscellaneous Test See scanned result 02/20/20 Unknown Microbiology: Microbiology 02/17/20 20:16 Peripheral/Venous Blood Culture - Preliminary NO GROWTH AFTER 4 DAYS 02/17/20 20:16 Peripheral/Venous Blood Culture - Preliminary NO GROWTH AFTER 4 DAYS Mack/IV: Voiding Method Toilet IV Catheter Type [Right INT / Saline Lock Forearm] IV Catheter Type [Left Forearm INT / Saline Lock ] IV Catheter Type [Left Hand] Peripheral IV Active Medications - Current Medications Current Medications: Generic Name Dose Route Start Last Admin Trade Name Freq PRN Reason Stop Dose Admin Acetaminophen 650 mg 02/18/20 02:36 02/18/20 23:21 Tylenol PO 650 mg Q4H PRN Administration Pain MILD(1-3)/Fever >100.5/KIM Albuterol 2.5 mg 02/18/20 22:19 02/19/20 10:49 Proventil IH 2.5 mg Q4HRT PRN Administration Shortness Of Breath Albuterol/Ipratropium 1 ampul 02/19/20 14:45 02/22/20 02:39 Duoneb *Not For Prn Use* IH Not Given Q6HRT LINDA Alprazolam 0.25 mg 02/19/20 14:34 02/21/20 23:24 Xanax PO 0.25 mg Q8H PRN Administration Anxiety Cetirizine HCl 10 mg 02/18/20 17:00 02/21/20 10:00 Cetirizine PO 10 mg QDAY LINDA Administration Heparin Sodium (Porcine) 5,000 unit 02/18/20 14:00 02/22/20 06:06 Heparin SUB-Q 5,000 unit Q8HR LINDA Administration Hydroxychloroquine Sulfate 200 mg 02/20/20 10:00 02/21/20 21:35 Plaquenil PO 02/23/20 22:01 200 mg BID LINDA Administration Ceftriaxone Sodium 2 gm in 100 mls @ 200 mls/hr 02/18/20 10:00 02/21/20 10:00 Rocephin/Ns 2 Gm/100 Ml IV 200 mls/hr Q24HR LINDA Administration Protocol Vancomycin HCl 1,500 mg/ 530 mls @ 353.333 mls/hr 02/22/20 01:00 02/22/20 00:38 Sodium Chloride IV 353.333 mls/hr Q8H LINDA Administration Magnesium Hydroxide 30 ml 02/18/20 02:36 02/21/20 13:13 Milk Of Magnesia PO 30 ml Q4H PRN Administration Constipation Ondansetron HCl 4 mg 02/18/20 02:36 02/18/20 05:14 Zofran IV 4 mg Q8H PRN Administration Nausea And Vomiting Oxycodone/Acetaminophen 1 tab 02/18/20 16:36 02/21/20 23:24 Percocet 5/325 PO 1 tab Q6H PRN Administration Pain, Moderate (4-6) Sodium Chloride 10 ml 02/18/20 10:00 02/21/20 21:34 Sodium Chloride Flush Syringe 10 Ml IV 10 ml BID LINDA Administration Sodium Chloride 10 ml 02/18/20 02:36 02/18/20 05:34 Sodium Chloride Flush Syringe 10 Ml IV 10 ml PRN PRN Administration LINE FLUSH Zinc Sulfate 220 mg 02/19/20 13:00 02/21/20 13:07 Zinc Sulfate PO 02/23/20 12:01 220 mg DAILY@1200 LINDA Administration
[2020-02-22 09:00] LABS: C-Reactive Protein 7.7 mg/dL (0.00-1.30)
[2020-02-22] MEDS: cefTRIAXone/NS 2 GM/100 ML 2 GM/100 ML BAG IV SCH (09:25)
[2020-02-22] MEDS: CETIRIZINE 10 MG TAB PO SCH (09:26)
[2020-02-22] MEDS: HYDROXYCHLOROQUINE 200 MG TAB PO SCH ×2 (09:26→21:45)
[2020-02-22] MEDS: MAGNESIUM HYDROXIDE (MOM) ORAL LIQD UDC PO PRN (09:35)
[2020-02-22] MEDS: oxyCODONE /ACETAMINOPHEN 5-325MG TAB PO PRN ×3 (09:35→21:42)
[2020-02-22] MEDS: ZINC SULFATE 220 MG CAP PO SCH (11:38)
[2020-02-22] MEDS: ALPRAZolam 0.25 MG TAB PO PRN (21:43)
--- NOTE | 2020-02-22 21:49 | Progress Note ---
Assessment and Plan Imp: 1. Pneumonia 2. Acute respiratory failure, hypoxia 3. Obesity 4. Sepsis per criteria POA Rec: 1. Agree that suspicion for Covid-19 remains high despite negative test (? false negative); complete Hydrochloroquine and ABX as per ID 2. Wean off O2 to keep sats 88% or > 3. Labs in AM; check inflammatory markers periodically 4. Monitor Plan of care reviewed with patient, she understands/agrees Subjective Date of service: 02/22/20 Principal diagnosis: pneumonia Interval history: No events. On O2 2L NC. SOB is the same. Minimal cough, chest pain, or new complaints. Active Medications Acetaminophen (Tylenol) 650 mg PO Q4H PRN PRN Reason: Pain MILD(1-3)/Fever >100.5/KIM Last Admin: 02/18/20 23:21 Dose: 650 mg Documented by: Albuterol (Proventil) 2.5 mg IH Q4HRT PRN PRN Reason: Shortness Of Breath Last Admin: 02/19/20 10:49 Dose: 2.5 mg Documented by: Albuterol/Ipratropium (Duoneb *Not For Prn Use*) 1 ampul IH Q6HRT [facility] Last Admin: 02/22/20 13:47 Dose: 1 ampul Documented by: Alprazolam (Xanax) 0.25 mg PO Q8H PRN PRN Reason: Anxiety Last Admin: 02/22/20 21:43 Dose: 0.25 mg Documented by: Cetirizine HCl (Cetirizine) 10 mg PO QDAY [facility] Last Admin: 02/22/20 09:26 Dose: 10 mg Documented by: Heparin Sodium (Porcine) (Heparin) 5,000 unit SUB-Q Q8HR [facility] Last Admin: 02/22/20 21:42 Dose: 5,000 unit Documented by: Hydroxychloroquine Sulfate (Plaquenil) 200 mg PO BID [facility] Stop: 02/23/20 22:01 Last Admin: 02/22/20 21:45 Dose: 200 mg Documented by: Ceftriaxone Sodium (Rocephin/Ns 2 Gm/100 Ml) 2 gm in 100 mls @ 200 mls/hr IV Q24HR [facility]; Protocol Last Admin: 02/22/20 09:25 Dose: 200 mls/hr Documented by: Vancomycin HCl 1,500 mg/ (Sodium Chloride) 530 mls @ 353.333 mls/hr IV Q8H [facility] Last Admin: 02/22/20 17:08 Dose: 353.333 mls/hr Documented by: Magnesium Hydroxide (Milk Of Magnesia) 30 ml PO Q4H PRN PRN Reason: Constipation Last Admin: 02/21/20 13:13 Dose: 30 ml Documented by: Ondansetron HCl (Zofran) 4 mg IV Q8H PRN PRN Reason: Nausea And Vomiting Last Admin: 02/18/20 05:14 Dose: 4 mg Documented by: Oxycodone/Acetaminophen (Percocet 5/325) 1 tab PO Q6H PRN PRN Reason: Pain, Moderate (4-6) Last Admin: 02/22/20 21:42 Dose: 1 tab Documented by: Sodium Chloride (Sodium Chloride Flush Syringe 10 Ml) 10 ml IV BID [facility] Last Admin: 02/22/20 09:27 Dose: 10 ml Documented by: Sodium Chloride (Sodium Chloride Flush Syringe 10 Ml) 10 ml IV PRN PRN PRN Reason: LINE FLUSH Last Admin: 02/18/20 05:34 Dose: 10 ml Documented by: Zinc Sulfate (Zinc Sulfate) 220 mg PO DAILY@1200 [facility] Stop: 02/23/20 12:01 Last Admin: 02/22/20 11:38 Dose: 220 mg Documented by: Objective Vital Signs - 12hr 02/22/20 02/22/20 02/22/20 12:52 13:47 17:18 Temperature 98.5 F 97.8 F Pulse Rate 76 76 Pulse Rate [ 76 Posterior Bilateral Throughout] Respiratory 18 46 H Rate Respiratory 20 Rate [Posterior Bilateral Throughout] Blood Pressure 109/63 118/73 O2 Sat by Pulse 96 98 Oximetry 02/22/20 20:57 Temperature 98.2 F Pulse Rate 78 Pulse Rate [ Posterior Bilateral Throughout] Respiratory 20 Rate Respiratory Rate [Posterior Bilateral Throughout] Blood Pressure 111/64 O2 Sat by Pulse 97 Oximetry Constitutional: no acute distress, alert Eyes: non-icteric ENT: oropharynx moist Neck: supple Effort: normal Ascultation: Bilateral: rales Cardiovascular: regular rate and rhythm (no mrg) Gastrointestinal: normoactive bowel sounds, soft, non-tender, non-distended Integumentary: normal Extremities: no cyanosis, no edema, pink and warm Neurologic: normal mental status, non-focal exam, pupils equal and round Psychiatric: mood appropriate, affect normal CBC and BMP: 02/20/20 04:12 02/20/20 04:12 ABG, PT/INR, D-dimer: PT/INR, D-dimer PT 15.0 Sec. (12.2-14.9) H 02/17/20 20:16 INR 1.16 (0.87-1.13) H 02/17/20 20:16 D-Dimer 1236.22 ng/mlDDU (0-234) H 02/22/20 08:19 Abnormal lab findings: Abnormal Labs 02/17/20 02/17/20 02/17/20 20:16 20:16 20:16 WBC 15.6 H RBC 5.24 H MCH 27 L Lymph % (Auto) 5.1 L Lymph # 0.8 L Seg Neutrophils % 89.8 H Seg Neutrophils # 14.0 H PT 15.0 H INR 1.16 H D-Dimer VBG pH Sodium 129 L Potassium 3.2 L Chloride 92.0 L Carbon Dioxide 18 L BUN Creatinine Glucose 152 H Calcium Ferritin Lactate Dehydrogenase C-Reactive Protein Urine WBC (Auto) U Epithel Cells (Auto) 02/17/20 02/17/20 02/17/20 20:16 23:20 23:25 WBC RBC MCH Lymph % (Auto) Lymph # Seg Neutrophils % Seg Neutrophils # PT INR D-Dimer VBG pH 7.543 H Sodium Potassium Chloride Carbon Dioxide BUN Creatinine Glucose Calcium Ferritin Lactate Dehydrogenase 201 H C-Reactive Protein 23.70 H Urine WBC (Auto) 36.0 H U Epithel Cells (Auto) 20.0 H 02/18/20 02/18/20 02/18/20 03:03 03:03 03:03 WBC RBC MCH Lymph % (Auto) Lymph # Seg Neutrophils % Seg Neutrophils # PT INR D-Dimer 322.27 H VBG pH Sodium Potassium Chloride Carbon Dioxide BUN Creatinine Glucose Calcium Ferritin 416.9 H Lactate Dehydrogenase 208 H C-Reactive Protein Urine WBC (Auto) U Epithel Cells (Auto) 02/19/20 02/19/20 02/20/20 04:18 04:18 04:12 WBC 12.7 H RBC MCH 27 L 27 L Lymph % (Auto) 10.7 L Lymph # Seg Neutrophils % 83.6 H Seg Neutrophils # 10.6 H PT INR D-Dimer VBG pH Sodium 135 L Potassium 3.4 L Chloride 97.5 L Carbon Dioxide 20 L BUN 5 L Creatinine Glucose 108 H Calcium 8.2 L Ferritin Lactate Dehydrogenase C-Reactive Protein Urine WBC (Auto) U Epithel Cells (Auto) 02/20/20 02/20/20 02/20/20 04:12 04:12 04:12 WBC RBC MCH Lymph % (Auto) Lymph # Seg Neutrophils % Seg Neutrophils # PT INR D-Dimer 837.36 H VBG pH Sodium Potassium 3.3 L Chloride Carbon Dioxide BUN 5 L Creatinine 0.6 L Glucose 105 H Calcium 8.1 L Ferritin 822.2 H Lactate Dehydrogenase 243 H C-Reactive Protein 22.00 H Urine WBC (Auto) U Epithel Cells (Auto) 02/22/20 02/22/20 02/22/20 08:19 08:19 08:19 WBC RBC MCH Lymph % (Auto) Lymph # Seg Neutrophils % Seg Neutrophils # PT INR D-Dimer 1236.22 H VBG pH Sodium Potassium Chloride Carbon Dioxide BUN Creatinine Glucose Calcium Ferritin 496.3 H Lactate Dehydrogenase 253 H C-Reactive Protein 7.70 H Urine WBC (Auto) U Epithel Cells (Auto) Chest x-ray: report reviewed, image reviewed CT scan - chest: report reviewed, image reviewed
[2020-02-23] MEDS: VANCOMYCIN 1,500 MG in SODIUM CHLORIDE 0.9% 500 ML 500 ML IV SCH ×2 (00:17→08:33)
[2020-02-23] MEDS: IPRATROPIUM/ALBUTEROL SULFATE 3 ML AMPUL.NEB IH SCH ×4 (03:37→21:52)
[2020-02-23] MEDS: HEPARIN 5,000 UNIT/1 ML VIAL SUB-Q SCH ×3 (05:06→21:29)
[2020-02-23 06:56] LABS: Hematocrit 37.7 % (30.3-42.9); Hemoglobin 12.5 gm/dl (10.1-14.3); Mean Corpuscular HGB Conc 33 % (30-34); Mean Corpuscular Volume 82 fl (79-97); Platelet Count 389 K/mm3 (140-440); Red Blood Count 4.62 M/mm3 (3.65-5.03); Red Cell Distribution Width 14.8 % (13.2-15.2)
[2020-02-23 07:15] LABS: BUN/Creatinine Ratio 11; Blood Urea Nitrogen 8 mg/dL (7-17); Calcium 8.8 mg/dL (8.4-10.2); Hemolysis Index 2
[2020-02-23] MEDS: HYDROXYCHLOROQUINE 200 MG TAB PO SCH ×2 (09:55→21:29)
[2020-02-23] MEDS: cefTRIAXone/NS 2 GM/100 ML 2 GM/100 ML BAG IV SCH (09:55)
[2020-02-23] MEDS: CETIRIZINE 10 MG TAB PO SCH (09:55)
[2020-02-23] MEDS ORDERED: POTASSIUM CHLORIDE ER 20 MEQ TAB PO ONE (10:00)
[2020-02-23] MEDS: ZINC SULFATE 220 MG CAP PO SCH (11:29)
[2020-02-23] MEDS: oxyCODONE /ACETAMINOPHEN 5-325MG TAB PO PRN ×2 (11:29→22:51)
--- NOTE | 2020-02-23 11:35 | Progress Note ---
Assessment and Plan Assessment and plan: 39-year-old -[place] female with no significant past medical history seen in the emergency room today complaining of fever and shortness of breath which has been ongoing for the past few days. She was recently diagnosed with flu about 2 weeks ago during which time she had a Tamiflu with significant improvement. She however started having fever and shortness of breath over the past few days. She indicates that her is being treated for similar symptoms at [place] and her young son is also said to have fever. She denies any recent travel. She denies any chest pain. However she has been having generalized body aches and pain, nausea and vomiting and occasional diarrhea. Evaluation in the emergency room patient said to have had a temperature of about 102 F, CBC shows leukocytosis, chemistry reveals hyponatremia and chest x-ray shows bilateral pneumonia. She was started on empiric IV antibiotics and also being ruled out for Covid 19. Patient informs me that her 's results was negative as he was also admitted at [facility]. Acute dyspnea secondary to pneumonia possible viral induced with underlying recent flu COVID 19 test results came back negative although high suspicion with noted elevated ferritin and LDH and CRP with bilateral infiltrates.? False negative. There is good chance that her results is actually negative as her at other hospital also tested negative. Bilateral pneumonia Hypokalemia Hyponatremia Gastroenteritis with diarrhea now resolving Anxiety Plan 4/2: Patient still with tachypnea and tachycardia. CT scan evaluated significant reticular pattern infiltrate been noted. Pulmonary consulted discu ssed with them also considering a post influenza pneumonia possible MRSA. Defer to infectious disease for consideration of adding vancomycin. 3: Continue supportive care due to concern as noted above we will continue patient on isolation and treat patient as if she was positive and completed kyle tment. We will also recommend self-isolation once her pulmonary status improved. And encourage ambulation in the room. Anticipate discharge in 24 to 48 hours I also discussed with ID will be broadening her antibiotic coverage to consider post influenza pneumonia 4/: Now on Vancomyin, continues to improve, anticipate completion of the Hydroxychloroquin and Zinc AND Ceftriaxone today. Await PCR MRSA. Start weaning oxygen. Although noted increasing d-dimer although markers are improving. She has been ambulating she is on DVT prophylaxis. We will continue to watch with weaning oxygen. 02/22: MRSA- Culture is negative. Hopefully will discharge in am. Continue supportive care Xanax for anxiety Continuos pulse oximetry and exercise oximetry Plaquenil and azithromycin started per protocol here at [facility] f/u COVID test - pending Continue COVID isolation precautions per [facility] protocol Obtain serial Ferritin, LDH, D-Dimer, CRP every 48h Daily EKG - QT monitoring - stop plaqenil if QT interval >500 Home quarantine for 14 days from initial symptoms (own bedroom, toilet, utensils), educate that viral shedding may last 21 days We will discharge if oxygen requirement continues to improve History Interval history: Patient seen and examined, appears to be clinically improving, No further chest pain today, reports better breathing. Nurse was able to wean down oxygen to 2 L today. She has been ambulating. Hospitalist Physical - Physical exam Narrative exam: VITAL SIGNS: Reviewed. GENERAL: The patient appears normally developed, obese, anxious appearing vital signs as documented. HEAD: No signs of head trauma. EYES: Pupils are equal. Extraocular motions intact. EARS: Hearing grossly intact. MOUTH: Oropharynx is normal. NECK: No adenopathy, no JVD. CHEST: Chest with diminished r breath sounds bilaterally with fine crackles at the base. No wheezes, rales, or rhonchi. CARDIAC: Regular rate and rhythm. S1 and S2, without murmurs, gallops, or rubs. VASCULAR: No Edema. Peripheral pulses normal and equal in all extremities. ABDOMEN: Soft, non tender and non distended. No rebound or guarding, and no masses palpated. Bowel Sounds normal. MUSCULOSKELETAL: Good range of motion of all major joints. Extremities without clubbing, cyanosis or edema. NEUROLOGIC EXAM: Alert and oriented x 3 No focal sensory or strength deficits. Speech normal. Follows commands. PSYCHIATRIC: Mood anxious . SKIN: detail exam as documented in skin assessment - Constitutional Vitals: Temp Pulse Resp BP Pulse Ox 98.5 F 74 20 128/75 96 02/23/20 04:18 02/23/20 04:18 02/23/20 04:18 02/23/20 04:18 02/23/20 04:18 General appearance: Present: no acute distress, well-nourished Results - Labs CBC & Chem 7: 02/23/20 06:22 02/23/20 06:22 Labs: Laboratory Last Values WBC 9.7 K/mm3 (4.5-11.0) 02/23/20 06:22 RBC 4.62 M/mm3 (3.65-5.03) 02/23/20 06:22 Hgb 12.5 gm/dl (10.1-14.3) 02/23/20 06:22 Hct 37.7 % (30.3-42.9) 02/23/20 06:22 MCV 82 fl (79-97) 02/23/20 06:22 MCH 27 pg (28-32) L 02/23/20 06:22 MCHC 33 % (30-34) 02/23/20 06:22 RDW 14.8 % (13.2-15.2) 02/23/20 06:22 Plt Count 389 K/mm3 (140-440) 02/23/20 06:22 Lymph % (Auto) 10.7 % (13.4-35.0) L 02/19/20 04:18 [place] % (Auto) 5.5 % (0.0-7.3) 02/19/20 04:18 Eos % (Auto) 0.0 % (0.0-4.3) 02/19/20 04:18 Baso % (Auto) 0.2 % (0.0-1.8) 02/19/20 04:18 Lymph # 1.4 K/mm3 (1.2-5.4) 02/19/20 04:18 [place]ata[place] # 0.7 K/mm3 (0.0-0.8) 02/19/20 04:18 Eos # 0.0 K/mm3 (0.0-0.4) 02/19/20 04:18 Baso # 0.0 K/mm3 (0.0-0.1) 02/19/20 04:18 Seg Neutrophils % 83.6 % (40.0-70.0) H 02/19/20 04:18 Seg Neutrophils # 10.6 K/mm3 (1.8-7.7) H 02/19/20 04:18 PT 15.0 Sec. (12.2-14.9) H 02/17/20 20:16 INR 1.16 (0.87-1.13) H 02/17/20 20:16 D-Dimer 1236.22 ng/mlDDU (0-234) H 02/22/20 08:19 VBG pH 7.543 (7.320-7.420) H 02/17/20 20:16 Sodium 138 mmol/L (137-145) 02/23/20 06:22 Potassium 3.5 mmol/L (3.6-5.0) L 02/23/20 06:22 Chloride 104.0 mmol/L (98-107) 02/23/20 06:22 Carbon Dioxide 23 mmol/L (22-30) 02/23/20 06:22 Anion Gap 15 mmol/L 02/23/20 06:22 BUN 8 mg/dL (7-17) 02/23/20 06:22 Creatinine 0.7 mg/dL (0.7-1.2) 02/23/20 06:22 Estimated GFR > 60 ml/min 02/23/20 06:22 BUN/Creatinine Ratio 11 % 02/23/20 06:22 Glucose 103 mg/dL (65-100) H 02/23/20 06:22 Lactic Acid 1.80 mmol/L (0.7-2.0) 02/17/20 20:16 Calcium 8.8 mg/dL (8.4-10.2) 02/23/20 06:22 Magnesium 1.80 mg/dL (1.7-2.3) 02/19/20 04:18 Ferritin 496.3 ng/mL (13.0-400.0) H 02/22/20 08:19 Total Bilirubin 0.40 mg/dL (0.1-1.2) 02/17/20 20:16 AST 12 units/L (5-40) 02/17/20 20:16 ALT 15 units/L (7-56) 02/17/20 20:16 Alkaline Phosphatase 63 units/L (35-129) 02/17/20 20:16 Lactate Dehydrogenase 253 units/L (91-180) H 02/22/20 08:19 C-Reactive Protein 7.70 mg/dL (0.00-1.30) H 02/22/20 08:19 Total Protein 8.0 g/dL (6.3-8.2) 02/17/20 20:16 Albumin 4.0 g/dL (3.9-5) 02/17/20 20:16 Albumin/Globulin Ratio 1.0 % 02/17/20 20:16 Procalcitonin 0.10 ng/mL (<0.15) 02/22/20 08:19 HCG, Qual Negative (Negative) 02/17/20 20:16 Urine Color Kiesha (Yellow) 02/17/20 23:20 Urine Turbidity Turbid (Clear) 02/17/20 23:20 Urine pH 5.0 (5.0-7.0) 02/17/20 23:20 Ur Specific [place] 1.029 (1.003-1.030) 02/17/20 23:20 Urine Protein 100 mg/dl mg/dL (Negative) 02/17/20 23:20 Urine Glucose (UA) Neg mg/dL (Negative) 02/17/20 23:20 Urine Ketones 20 mg/dL (Negative) 02/17/20 23:20 Urine Blood Lg (Negative) 02/17/20 23:20 Urine Nitrite Neg (Negative) 02/17/20 23:20 Urine Bilirubin Neg (Negative) 02/17/20 23:20 Urine Urobilinogen < 2.0 mg/dL (<2.0) 02/17/20 23:20 Ur Leukocyte Esterase Tr (Negative) 02/17/20 23:20 Urine WBC (Auto) 36.0 /HPF (0.0-6.0) H 02/17/20 23:20 Urine RBC (Auto) 8.0 /HPF (0.0-6.0) 02/17/20 23:20 U Epithel Cells (Auto) 20.0 /HPF (0-13.0) H 02/17/20 23:20 Hyaline Casts 2 /LPF 02/17/20 23:20 Urine Mucus 3+ /HPF 02/17/20 23:20 Vancomycin Trough 13.8 ug/mL (5.0-20.0) 02/22/20 17:08 Miscellaneous Test See scanned result 02/20/20 Unknown Microbiology: Microbiology 02/17/20 20:16 Peripheral/Venous Blood Culture - Final NO GROWTH AFTER 5 DAYS 02/17/20 20:16 Peripheral/Venous Blood Culture - Final NO GROWTH AFTER 5 DAYS Mack/IV: Voiding Method Toilet IV Catheter Type [Right INT / Saline Lock Forearm] IV Catheter Type [Left Forearm INT / Saline Lock ] IV Catheter Type [Left Hand] Peripheral IV Active Medications - Current Medications Current Medications: Generic Name Dose Route Start Last Admin Trade Name Freq PRN Reason Stop Dose Admin Acetaminophen 650 mg 02/18/20 02:36 02/18/20 23:21 Tylenol PO 650 mg Q4H PRN Administration Pain MILD(1-3)/Fever >100.5/KIM Albuterol 2.5 mg 02/18/20 22:19 02/19/20 10:49 Proventil IH 2.5 mg Q4HRT PRN Administration Shortness Of Breath Albuterol/Ipratropium 1 ampul 02/19/20 14:45 02/23/20 09:11 Duoneb *Not For Prn Use* IH 1 ampul Q6HRT LINDA Administration Alprazolam 0.25 mg 02/19/20 14:34 02/22/20 21:43 Xanax PO 0.25 mg Q8H PRN Administration Anxiety Cetirizine HCl 10 mg 02/18/20 17:00 02/23/20 09:55 Cetirizine PO 10 mg QDAY LINDA Administration Heparin Sodium (Porcine) 5,000 unit 02/18/20 14:00 02/23/20 05:06 Heparin SUB-Q 5,000 unit Q8HR LINDA Administration Hydroxychloroquine Sulfate 200 mg 02/20/20 10:00 02/23/20 09:55 Plaquenil PO 02/23/20 22:01 200 mg BID LINDA Administration Ceftriaxone Sodium 2 gm in 100 mls @ 200 mls/hr 02/18/20 10:00 02/23/20 09:55 Rocephin/Ns 2 Gm/100 Ml IV 200 mls/hr Q24HR LINDA Administration Protocol Vancomycin HCl 1,500 mg/ 530 mls @ 353.333 mls/hr 02/22/20 01:00 02/23/20 08 :33 Sodium Chloride IV 353.333 mls/hr Q8H LINDA Administration Magnesium Hydroxide 30 ml 02/18/20 02:36 02/21/20 13:13 Milk Of Magnesia PO 30 ml Q4H PRN Administration Constipation Ondansetron HCl 4 mg 02/18/20 02:36 02/18/20 05:14 Zofran IV 4 mg Q8H PRN Administration Nausea And Vomiting Oxycodone/Acetaminophen 1 tab 02/18/20 16:36 02/23/20 11:29 Percocet 5/325 PO 1 tab Q6H PRN Administration Pain, Moderate (4-6) Sodium Chloride 10 ml 02/18/20 10:00 02/23/20 09:55 Sodium Chloride Flush Syringe 10 Ml IV 10 ml BID LINDA Administration Sodium Chloride 10 ml 02/18/20 02:36 02/18/20 05:34 Sodium Chloride Flush Syringe 10 Ml IV 10 ml PRN PRN Administration LINE FLUSH Zinc Sulfate 220 mg 02/19/20 13:00 02/23/20 11:29 Zinc Sulfate PO 02/23/20 12:01 220 mg DAILY@1200 LINDA Administration
--- NOTE | 2020-02-23 15:35 | Progress Note ---
Assessment and Plan Cultures: Blood culture 02/17/2020 no growth to date A/P: 39 y/o female with no significant past medical history admitted on 02/17/2020 due to a week history of fever and shortness of breath associated with body aches, nausea, vomiting and some diarrhea. 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 CRP highly elevated. Chest x-ray shows bilateral patchy multifocal infiltrates. On 3L NC O2 #Acute resp failure: on NC O2 now on RA #N/D/diarrhea: COVID is a pneumo-enteric virus, can cause pneumonia and diarrhea Recs: Continuos pulse oximetry and exercise oximetry ContinueCOVID isolationprecautions per [facility] protocol due to high clinical suspicion Complete hydroxychloroquine (total 5 days) with zinc 220 mg PO qday Continue ceftriaxone total 5 days Stop vancomycin MRSA screen negative Home quarantine for 14 days from initial symptoms (own bedroom, toilet, utensils), educate that viral shedding may last 21 days Will sign off Ingrid Zamora MD Infectious Diseases Health Benefits Specialist [facility] M [phone] O [phone] Subjective Date of service: 02/23/20 Principal diagnosis: pneumonia Interval history: Remains in [place] O2 feels some better no fever x 2 days Objective - Exam Narrative Exam: Gen: alert in NAD in NC O2 2L Head, Ears, Nose: Normocephalic, atraumatic. Oral: Limited Cardiovascular: Limited evaluation due to PPE shortage Respiratory: deonna crackles GI: Limited evaluation due to PPE shortage Musculoskeletal: Limited evaluation due to PPE shortage Neurological: alert non focal - Constitutional Vitals: Vital Signs Temp Pulse Resp BP Pulse Ox 97.8 F 80 20 135/84 98 02/23/20 11:19 02/23/20 11:19 02/23/20 04:18 02/23/20 11:19 02/23/20 11:19 Temperature -Last 24 Hours Temperature 97.8 F Temperature 98.5 F Temperature 98.2 F Temperature 97.8 F - Labs CBC & Chem 7: 02/23/20 06:22 02/23/20 06:22 Labs: Abnormal lab results 02/23/20 02/23/20 Range/Units 06:22 06:22 MCH 27 L (28-32) pg Potassium 3.5 L (3.6-5.0) mmol/L Glucose 103 H (65-100) mg/dL
--- NOTE | 2020-02-23 19:51 | Progress Note ---
Assessment and Plan Imp: 1. Pneumonia 2. Acute respiratory failure, hypoxia 3. Obesity 4. Sepsis per criteria POA Rec: 1. Agree w/ ID that suspicion for Covid-19 remains high despite negative test (? false negative); completing Hydrochloroquine and ABX as per ID 2. Off O2 3. Check inflammatory markers periodically 4. Needs f/u CXR in a few weeks as an outpatient; okay for d/c planning; can f/u with us and please have her call [phone] Plan of care reviewed with patient, she understands/agrees Subjective Date of service: 02/23/20 Principal diagnosis: pneumonia Interval history: No events. On RA and has decreased SOB today. Feels better. Minimal cough, chest pain, or new complaints. Active Medications Acetaminophen (Tylenol) 650 mg PO Q4H PRN PRN Reason: Pain MILD(1-3)/Fever >100.5/KIM Last Admin: 02/18/20 23:21 Dose: 650 mg Documented by: Albuterol (Proventil) 2.5 mg IH Q4HRT PRN PRN Reason: Shortness Of Breath Last Admin: 02/19/20 10:49 Dose: 2.5 mg Documented by: Albuterol/Ipratropium (Duoneb *Not For Prn Use*) 1 ampul IH Q6HRT [facility] Last Admin: 02/23/20 15:47 Dose: 1 ampul Documented by: Alprazolam (Xanax) 0.25 mg PO Q8H PRN PRN Reason: Anxiety Last Admin: 02/22/20 21:43 Dose: 0.25 mg Documented by: Cetirizine HCl (Cetirizine) 10 mg PO QDAY [facility] Last Admin: 02/23/20 09:55 Dose: 10 mg Documented by: Heparin Sodium (Porcine) (Heparin) 5,000 unit SUB-Q Q8HR [facility] Last Admin: 02/23/20 13:08 Dose: 5,000 unit Documented by: Hydroxychloroquine Sulfate (Plaquenil) 200 mg PO BID [facility] Stop: 02/23/20 22:01 Last Admin: 02/23/20 09:55 Dose: 200 mg Documented by: Ceftriaxone Sodium (Rocephin/Ns 2 Gm/100 Ml) 2 gm in 100 mls @ 200 mls/hr IV Q24HR [facility]; Protocol Last Admin: 02/23/20 09:55 Dose: 200 mls/hr Documented by: Magnesium Hydroxide (Milk Of Magnesia) 30 ml PO Q4H PRN PRN Reason: Constipation Last Admin: 02/21/20 13:13 Dose: 30 ml Documented by: Ondansetron HCl (Zofran) 4 mg IV Q8H PRN PRN Reason: Nausea And Vomiting Last Admin: 02/18/20 05:14 Dose: 4 mg Documented by: Oxycodone/Acetaminophen (Percocet 5/325) 1 tab PO Q6H PRN PRN Reason: Pain, Moderate (4-6) Last Admin: 02/23/20 11:29 Dose: 1 tab Documented by: Sodium Chloride (Sodium Chloride Flush Syringe 10 Ml) 10 ml IV BID [facility] Last Admin: 02/23/20 09:55 Dose: 10 ml Documented by: Sodium Chloride (Sodium Chloride Flush Syringe 10 Ml) 10 ml IV PRN PRN PRN Reason: LINE FLUSH Last Admin: 02/18/20 05:34 Dose: 10 ml Documented by: Objective Vital Signs - 12hr 02/23/20 02/23/20 02/23/20 09:11 11:19 15:47 Temperature 97.8 F Pulse Rate 80 Pulse Rate [ 90 92 H Posterior Bilateral Throughout] Respiratory Rate Respiratory 20 20 Rate [Posterior Bilateral Throughout] Blood Pressure 135/84 O2 Sat by Pulse 98 98 Oximetry 02/23/20 16:57 Temperature 98.3 F Pulse Rate 86 Pulse Rate [ Posterior Bilateral Throughout] Respiratory 20 Rate Respiratory Rate [Posterior Bilateral Throughout] Blood Pressure 128/82 O2 Sat by Pulse 92 Oximetry Constitutional: no acute distress, alert Eyes: non-icteric ENT: oropharynx moist Neck: supple Effort: normal Ascultation: Bilateral: rales Cardiovascular: regular rate and rhythm (no mrg) Gastrointestinal: normoactive bowel sounds, soft, non-tender, non-distended Integumentary: normal Extremities: no cyanosis, no edema, pink and warm Neurologic: normal mental status, non-focal exam, pupils equal and round Psychiatric: mood appropriate, affect normal CBC and BMP: 02/23/20 06:22 02/23/20 06:22 ABG, PT/INR, D-dimer: PT/INR, D-dimer PT 15.0 Sec. (12.2-14.9) H 02/17/20 20:16 INR 1.16 (0.87-1.13) H 02/17/20 20:16 D-Dimer 1236.22 ng/mlDDU (0-234) H 02/22/20 08:19 Abnormal lab findings: Abnormal Labs 02/17/20 02/17/20 02/17/20 20:16 20:16 20:16 WBC 15.6 H RBC 5.24 H MCH 27 L Lymph % (Auto) 5.1 L Lymph # 0.8 L Seg Neutrophils % 89.8 H Seg Neutrophils # 14.0 H PT 15.0 H INR 1.16 H D-Dimer VBG pH Sodium 129 L Potassium 3.2 L Chloride 92.0 L Carbon Dioxide 18 L BUN Creatinine Glucose 152 H Calcium Ferritin Lactate Dehydrogenase C-Reactive Protein Urine WBC (Auto) U Epithel Cells (Auto) 02/17/20 02/17/20 02/17/20 20:16 23:20 23:25 WBC RBC MCH Lymph % (Auto) Lymph # Seg Neutrophils % Seg Neutrophils # PT INR D-Dimer VBG pH 7.543 H Sodium Potassium Chloride Carbon Dioxide BUN Creatinine Glucose Calcium Ferritin Lactate Dehydrogenase 201 H C-Reactive Protein 23.70 H Urine WBC (Auto) 36.0 H U Epithel Cells (Auto) 20.0 H 02/18/20 02/18/20 02/18/20 03:03 03:03 03:03 WBC RBC MCH Lymph % (Auto) Lymph # Seg Neutrophils % Seg Neutrophils # PT INR D-Dimer 322.27 H VBG pH Sodium Potassium Chloride Carbon Dioxide BUN Creatinine Glucose Calcium Ferritin 416.9 H Lactate Dehydrogenase 208 H C-Reactive Protein Urine WBC (Auto) U Epithel Cells (Auto) 02/19/20 02/19/20 02/20/20 04:18 04:18 04:12 WBC 12.7 H RBC MCH 27 L 27 L Lymph % (Auto) 10.7 L Lymph # Seg Neutrophils % 83.6 H Seg Neutrophils # 10.6 H PT INR D-Dimer VBG pH Sodium 135 L Potassium 3.4 L Chloride 97.5 L Carbon Dioxide 20 L BUN 5 L Creatinine Glucose 108 H Calcium 8.2 L Ferritin Lactate Dehydrogenase C-Reactive Protein Urine WBC (Auto) U Epithel Cells (Auto) 02/20/20 02/20/20 02/20/20 04:12 04:12 04:12 WBC RBC MCH Lymph % (Auto) Lymph # Seg Neutrophils % Seg Neutrophils # PT INR D-Dimer 837.36 H VBG pH Sodium Potassium 3.3 L Chloride Carbon Dioxide BUN 5 L Creatinine 0.6 L Glucose 105 H Calcium 8.1 L Ferritin 822.2 H Lactate Dehydrogenase 243 H C-Reactive Protein 22.00 H Urine WBC (Auto) U Epithel Cells (Auto) 02/22/20 02/22/20 02/22/20 08:19 08:19 08:19 WBC RBC MCH Lymph % (Auto) Lymph # Seg Neutrophils % Seg Neutrophils # PT INR D-Dimer 1236.22 H VBG pH Sodium Potassium Chloride Carbon Dioxide BUN Creatinine Glucose Calcium Ferritin 496.3 H Lactate Dehydrogenase 253 H C-Reactive Protein 7.70 H Urine WBC (Auto) U Epithel Cells (Auto) 02/23/20 02/23/20 06:22 06:22 WBC RBC MCH 27 L Lymph % (Auto) Lymph # Seg Neutrophils % Seg Neutrophils # PT INR D-Dimer VBG pH Sodium Potassium 3.5 L Chloride Carbon Dioxide BUN Creatinine Glucose 103 H Calcium Ferritin Lactate Dehydrogenase C-Reactive Protein Urine WBC (Auto) U Epithel Cells (Auto) Chest x-ray: report reviewed, image reviewed
[2020-02-23] MEDS: ALPRAZolam 0.25 MG TAB PO PRN (22:52)
[2020-02-24] MEDS: HEPARIN 5,000 UNIT/1 ML VIAL SUB-Q SCH ×2 (05:09→14:28)
[2020-02-24 06:27] LABS: C-Reactive Protein 3.2 mg/dL (0.00-1.30)
[2020-02-24] MEDS: IPRATROPIUM/ALBUTEROL SULFATE 3 ML AMPUL.NEB IH SCH ×2 (08:58→13:39)
[2020-02-24] MEDS: cefTRIAXone/NS 2 GM/100 ML 2 GM/100 ML BAG IV SCH (09:40)
[2020-02-24] MEDS: CETIRIZINE 10 MG TAB PO SCH (09:41)
--- NOTE | 2020-02-24 11:21 | Discharge Summary ---
Providers - Providers Date of Admission: 02/18/20 03:26 Attending physician: MARJORIE MUÑIZ MD 02/18/20 02:36 Consult to Physician [CONS] Routine Comment: Consulting Provider: ROSAURA JENKINS Physician Instructions: Reason For Exam: PNEUMONIA R/O COVID 02/20/20 10:53 Consult to Physician [CONS] Routine Comment: Consulting Provider: BRIDGETTE BEAL Physician Instructions: Reason For Exam: pneumonia, respiratory failure r/o covid Primary care physician: HAYLEY CHENEY Hospitalization Reason for admission: Acute respiratory failure Condition: Stable Hospital course: 39-year-old -[place] female with no significant past medical history seen in the emergency room today complaining of fever and shortness of breath which has been ongoing for the past few days. She was recently diagnosed with flu about 2 weeks ago during which time she had a Tamiflu with significant improvement. She however started having fever and shortness of breath over the past few days. She indicates that her is being treated for similar symptoms at [place] and her young son is also said to have fever. She denies any recent travel. She denies any chest pain. However she has been having generalized body aches and pain, nausea and vomiting and occasional diarrhea. Evaluation in the emergency room patient said to have had a temperature of about 102 F, CBC shows leukocytosis, chemistry reveals hyponatremia and chest x-ray shows bilateral pneumonia. She was started on empiric IV antibiotics and also being ruled out for Covid 19. Patient informs me that her 's results was negative as he was also admitted at [facility]. Patient was admitted with likely post influenza pneumonia but with the current demographic condition going around COVID 19 was ruled out. The test did come back negative but was felt to be false negative as a result patient continued until completion of Plaquenil and zinc. Ceftriaxone and vancomycin was additionally given due to concern for MRSA pneumonia but cultures were negative. 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 She is clinically stable she did have an anxiety episode while she was in the hospital we did give her some Xanax as needed will she was discharged on a low-dose of that. She understands to continue social distention and complete 9 days of isolation to make a total of 15days. She was totally weaned off of oxygen prior to discharge Acute dyspnea secondary to pneumonia possible viral induced with underlying recent flu COVID 19 test results came back negative although high suspicion with noted elevated ferritin and LDH and CRP with bilateral infiltrates.? False negative. There is good chance that her results is actually negative as her at other hospital also tested negative. Bilateral pneumonia Hypokalemia Hyponatremia Gastroenteritis with diarrhea now resolving Anxiety Disposition: DC-01 TO HOME OR SELFCARE Time spent for discharge: 35 mins Core Measure Documentation - Palliative Care Palliative Care/ Comfort Measures: Not Applicable - Core Measures Any of the following diagnoses?: none Exam - Physical Exam Narrative exam: VITAL SIGNS: Reviewed. GENERAL: The patient appears normally developed, obese,appearing vital signs as documented. HEAD: No signs of head trauma. EYES: Pupils are equal. Extraocular motions intact. EARS: Hearing grossly intact. MOUTH: Oropharynx is normal. NECK: No adenopathy, no JVD. CHEST: Chest with clear to auscultation bilaterally. No wheezes, rales, or rhonchi. CARDIAC: Regular rate and rhythm. S1 and S2, without murmurs, gallops, or rubs. VASCULAR: No Edema. Peripheral pulses normal and equal in all extremities. ABDOMEN: Soft, non tender and non distended. No rebound or guarding, and no masses palpated. Bowel Sounds normal. MUSCULOSKELETAL: Good range of motion of all major joints. Extremities without clubbing, cyanosis or edema. NEUROLOGIC EXAM: Alert and oriented x 3 No focal sensory or strength deficits. Speech normal. Follows commands. PSYCHIATRIC: Mood normal and elated SKIN: detail exam as documented in skin assessment - Constitutional Vitals: Temp Pulse Resp BP Pulse Ox 99.0 F 94 H 20 130/83 95 02/24/20 06:31 02/24/20 08:58 02/24/20 08:58 02/24/20 06:31 02/24/20 10:00 Plan Activity: advance as tolerated, fall precautions Diet: low fat, low salt Special Instructions: record daily weights, record daily BP diary Additional Instructions: continue with Mask and self quaratine for 9 more days. Follow up with: DEE DEE PAUL MD [Staff Physician] - 7 Days PRIMARY CARE, [Referring] - 3-5 Days YA NAVARRETE MD [Staff Physician] - 14 Days Prescriptions: Ipratropium/Albuterol Sulfate [Combivent Respimat] 2 spray IH QID PRN #1 PRN Reason: Shortness Of Breath Hydroxychloroquine [Plaquenil] 200 mg PO BID #4 tablet ALPRAZolam [Xanax TAB] 0.25 mg PO Q12H PRN #10 tablet PRN Reason: Anxiety Azithromycin [Zithromax TAB] 250 mg PO QDAY #2 tablet
--- NOTE | 2020-02-24 11:25 | Progress Note ---
Assessment and Plan 39 y/o obese female admitted with fever, abnormal CXT/CT with elevated inflammatory markers and lymphopenia, concern for COVID 19 vs post viral infection (flu) 1. O2 now weaned off and does not qualify for home O2. 2. ID has signed off and left recs. 3. Has finished experimental therapy for COVID 4. No current indication for steroid therapy would not do in this setting 5. No objection to discharge from a pulmonary standpoint. Subjective Date of service: 02/24/20 Principal diagnosis: pneumonia Interval history: Patient remains on room air. Stable. Objective Vital Signs - 12hr 02/24/20 02/24/20 02/24/20 06:31 08:58 10:00 Temperature 99.0 F Pulse Rate 67 Pulse Rate [ 94 H Posterior Bilateral Throughout] Respiratory 18 Rate Respiratory 20 Rate [Posterior Bilateral Throughout] Blood Pressure 130/83 O2 Sat by Pulse 96 95 Oximetry Constitutional: no acute distress, alert Eyes: non-icteric ENT: oropharynx moist Neck: supple Effort: normal Ascultation: Bilateral: rales Cardiovascular: regular rate and rhythm (no mrg) Gastrointestinal: normoactive bowel sounds, soft, non-tender, non-distended Integumentary: normal Extremities: no cyanosis, no edema, pink and warm Neurologic: normal mental status, non-focal exam, pupils equal and round Psychiatric: mood appropriate, affect normal CBC and BMP: 02/23/20 06:22 02/23/20 06:22 ABG, PT/INR, D-dimer: PT/INR, D-dimer PT 15.0 Sec. (12.2-14.9) H 02/17/20 20:16 INR 1.16 (0.87-1.13) H 02/17/20 20:16 D-Dimer 1122.01 ng/mlDDU (0-234) H 02/24/20 05:45 Abnormal lab findings: Abnormal Labs 02/17/20 02/17/20 02/17/20 20:16 20:16 20:16 WBC 15.6 H RBC 5.24 H MCH 27 L Lymph % (Auto) 5.1 L Lymph # 0.8 L Seg Neutrophils % 89.8 H Seg Neutrophils # 14.0 H PT 15.0 H INR 1.16 H D-Dimer VBG pH Sodium 129 L Potassium 3.2 L Chloride 92.0 L Carbon Dioxide 18 L BUN Creatinine Glucose 152 H Calcium Ferritin Lactate Dehydrogenase C-Reactive Protein Urine WBC (Auto) U Epithel Cells (Auto) 02/17/20 02/17/20 02/17/20 20:16 23:20 23:25 WBC RBC MCH Lymph % (Auto) Lymph # Seg Neutrophils % Seg Neutrophils # PT INR D-Dimer VBG pH 7.543 H Sodium Potassium Chloride Carbon Dioxide BUN Creatinine Glucose Calcium Ferritin Lactate Dehydrogenase 201 H C-Reactive Protein 23.70 H Urine WBC (Auto) 36.0 H U Epithel Cells (Auto) 20.0 H 02/18/20 02/18/20 02/18/20 03:03 03:03 03:03 WBC RBC MCH Lymph % (Auto) Lymph # Seg Neutrophils % Seg Neutrophils # PT INR D-Dimer 322.27 H VBG pH Sodium Potassium Chloride Carbon Dioxide BUN Creatinine Glucose Calcium Ferritin 416.9 H Lactate Dehydrogenase 208 H C-Reactive Protein Urine WBC (Auto) U Epithel Cells (Auto) 02/19/20 02/19/20 02/20/20 04:18 04:18 04:12 WBC 12.7 H RBC MCH 27 L 27 L Lymph % (Auto) 10.7 L Lymph # Seg Neutrophils % 83.6 H Seg Neutrophils # 10.6 H PT INR D-Dimer VBG pH Sodium 135 L Potassium 3.4 L Chloride 97.5 L Carbon Dioxide 20 L BUN 5 L Creatinine Glucose 108 H Calcium 8.2 L Ferritin Lactate Dehydrogenase C-Reactive Protein Urine WBC (Auto) U Epithel Cells (Auto) 02/20/20 02/20/20 02/20/20 04:12 04:12 04:12 WBC RBC MCH Lymph % (Auto) Lymph # Seg Neutrophils % Seg Neutrophils # PT INR D-Dimer 837.36 H VBG pH Sodium Potassium 3.3 L Chloride Carbon Dioxide BUN 5 L Creatinine 0.6 L Glucose 105 H Calcium 8.1 L Ferritin 822.2 H Lactate Dehydrogenase 243 H C-Reactive Protein 22.00 H Urine WBC (Auto) U Epithel Cells (Auto) 02/22/20 02/22/20 02/22/20 08:19 08:19 08:19 WBC RBC MCH Lymph % (Auto) Lymph # Seg Neutrophils % Seg Neutrophils # PT INR D-Dimer 1236.22 H VBG pH Sodium Potassium Chloride Carbon Dioxide BUN Creatinine Glucose Calcium Ferritin 496.3 H Lactate Dehydrogenase 253 H C-Reactive Protein 7.70 H Urine WBC (Auto) U Epithel Cells (Auto) 02/23/20 02/23/20 02/24/20 06:22 06:22 05:45 WBC RBC MCH 27 L Lymph % (Auto) Lymph # Seg Neutrophils % Seg Neutrophils # PT INR D-Dimer 1122.01 H VBG pH Sodium Potassium 3.5 L Chloride Carbon Dioxide BUN Creatinine Glucose 103 H Calcium Ferritin Lactate Dehydrogenase C-Reactive Protein Urine WBC (Auto) U Epithel Cells (Auto) 02/24/20 05:45 WBC RBC MCH Lymph % (Auto) Lymph # Seg Neutrophils % Seg Neutrophils # PT INR D-Dimer VBG pH Sodium Potassium Chloride Carbon Dioxide BUN Creatinine Glucose Calcium Ferritin Lactate Dehydrogenase 267 H C-Reactive Protein 3.20 H Urine WBC (Auto) U Epithel Cells (Auto)
--- NOTE | 2020-02-24 11:41 | Event Note ---
Date: 02/24/20 Dr Lopez called me today to report his impression about chest CT done. 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 Her pre-test probablity for COVID was high. Please read my consultation note. She clinically improved on plaquenil, her hypoxemia resolved, fever resolved and now she is on room air. is, as well improving, admitted at [facility]. She has not known risk factors for TB. I asked Dr Marcial his opinion and he did not believe this was miliary TB clinically. I discussed with Dr Mason to check a quantiferon TB gold and send her to my office in 3 weeks for further evaluation.
[2020-02-24 12:48] VITALS: BP 129/77
== END 2020-02-24 18:19 | disposition home or self-care (01) | DRG 871 ==
LOC: ED 19:39 → 3A 02-18 03:26
PROVIDERS: ADMIT Internal Medicine Geriatric Medicine; ATTEND Internal Medicine
DX: A41.9 Sepsis, unspecified organism (principal); J12.89 Other viral pneumonia; J96.01 Acute respiratory failure with hypoxia; E87.1 Hypo-osmolality and hyponatremia; E66.9 Obesity, unspecified; F41.9 Anxiety disorder, unspecified; E87.6 Hypokalemia; K52.9 Noninfective gastroenteritis and colitis, unspecified; Z68.39 Body mass index [BMI] 39.0-39.9, adult; Z03.818 Encounter for observation for suspected exposure to other biological agents ruled out
CPT/HCPCS: 36415; 71045; 71275; 80048; 80053; 80202; 81001; 82140; 82164; 82728; 82805; 83615; 83735; 84145; 84703; 85025; 85027; 85379; 85610; 86140; 87040; 87086; 87116; 93005; 93010; 94640; 94760; G0378; J0456; J0696; J1644; J2405; J3370; J7030; J7040; J7050; Q9967

== ENCOUNTER 2020-03-15 14:47 | Observation (INO) | payer OTHER ==
[2020-03-15] MEDS ORDERED: ASPIRIN 325 MG TAB PO ONE ×2 (14:58→17:07)
[2020-03-15 15:26] LABS: Basophils % (Auto) 0.4 % (0.0-1.8); Eosinophils # (Auto) 0.1 K/mm3 (0.0-0.4); Eosinophils % (Auto) 1.1 % (0.0-4.3); Hematocrit 41.8 % (30.3-42.9); Hemoglobin 13.7 gm/dl (10.1-14.3); Lymphocytes # (Auto) 2.1 K/mm3 (1.2-5.4); Lymphocytes % (Auto) 25.5 % (13.4-35.0); Mean Corpuscular HGB Conc 33 % (30-34); Mean Corpuscular Volume 85 fl (79-97); Monocytes # (Auto) 0.6 K/mm3 (0.0-0.8); Monocytes % (Auto) 7.4 % (0.0-7.3); Platelet Count 274 K/mm3 (140-440); Red Blood Count 4.93 M/mm3 (3.65-5.03); Red Cell Distribution Width 15.4 % (13.2-15.2)
[2020-03-15 15:43] LABS: BUN/Creatinine Ratio 16; Blood Urea Nitrogen 11 mg/dL (7-17); Calcium 9.6 mg/dL (8.4-10.2); Hemolysis Index 13
--- NOTE | 2020-03-15 15:43 | Emergency Department Report ---
ED Chest Pain HPI - General Chief Complaint: Chest Pain Stated Complaint: CHEST PAIN/RT LEG/LFT ARM NUMB Time Seen by Provider: 03/15/20 15:34 Source: patient Mode of arrival: Ambulatory Limitations: No Limitations - History of Present Illness Initial Comments: 39-year-old female who recently was admitted to this facility February 24, 2020 with bilateral pneumonia. Apparently she was a person under investigation for COVID- 19. According to what I can tell reading her prior medical records her COVID test was negative. There was some discussion by the radiologist if her chest x- ray could be consistent with miliary TB by the radiologist. However the itical palliative care physician did not think that she had TB. She had a TB test sent. I do not find the results. Not withstanding, she is not here for shortness of breath nor cough. She has not had any recent fever. She has been off antibiotics for some time. The reason why she presented to the emergency room today is because she had anterior chest pressure intermittently for the past 2 days. She states that she had some left arm radiation. She also complained of some right leg and right foot tingling. She was not aware that her right leg was larger than her left leg which it is. She did not complain of leg pain per se. She had no hemoptysis. Patient has no prior history of work-up for coronary artery disease nor a history of VTE. She lacks a family history of coronary artery disease as well. She is not complaining of active chest pain at the time of my encounter. MD Complaint: chest pain -: days(s) Onset: during rest Pain Location: substernal Pain Radiation: LUE Severity: moderate Severity scale (0 -10): 7 Quality: heaviness Consistency: intermittent Improves With: nothing Worsens With: nothing re: denies: nausea, vomting, diaphoresis, dyspnea Other Symptoms: denies: cough, fever, syncope Treatments Prior to Arrival: none Aspirin use within the Past 7 Days: (0) No - Related Data On Oral Contraceptives: No Previous Rx's Medication Instructions Recorded Last Taken Type ALPRAZolam [Xanax TAB] 0.25 mg PO Q12H PRN #10 tablet 02/24/20 Unknown Rx Azithromycin [Zithromax TAB] 250 mg PO QDAY #2 tablet 02/24/20 Unknown Rx Hydroxychloroquine [Plaquenil] 200 mg PO BID #4 tablet 02/24/20 Unknown Rx Ipratropium/Albuterol Sulfate 2 spray IH QID PRN #1 02/24/20 Unknown Rx [Combivent Respimat] Allergies Allergy/AdvReac Type Severity Reaction Status Date / Time No Known Allergies Allergy Verified 02/17/20 22:25 Heart Score - HEART Score History: Moderately suspicious EKG: Non-specific Age: < 45 Risk factors: 1-2 risk factors Troponin: < normal limit HEART Score: 3 - Critical Actions Critical Actions: 0-3 pts:0.9-1.7%risk of adverse cardiac event.Candidate for discharge ED Review of Systems ROS: Stated complaint: CHEST PAIN/RT LEG/LFT ARM NUMB Other details as noted in HPI Constitutional: denies: chills, fever Eyes: denies: eye pain, eye discharge, vision change ENT: denies: ear pain, throat pain Respiratory: denies: cough, shortness of breath, wheezing Cardiovascular: chest pain. denies: palpitations Endocrine: no symptoms reported Gastrointestinal: denies: abdominal pain, nausea, diarrhea Genitourinary: denies: urgency, dysuria, discharge Musculoskeletal: denies: back pain, joint swelling, arthralgia Skin: denies: rash, lesions Neurological: paresthesias. denies: headache, weakness Psychiatric: denies: anxiety, depression Hematological/Lymphatic: denies: easy bleeding, easy bruising ED Past Medical Hx - Past Medical History Previous Medical History?: Yes Additional medical history: Coronavirus I believe this is not accurate unless she had a false negative test. - Surgical History Past Surgical History?: No - Social History Smoking Status: Never Smoker Substance Use Type: None - Medications Home Medications: Home Medications Medication Instructions Recorded Confirmed Last Taken Type ALPRAZolam [Xanax TAB] 0.25 mg PO Q12H PRN #10 tablet 02/24/20 Unknown Rx Azithromycin [Zithromax TAB] 250 mg PO QDAY #2 tablet 02/24/20 Unknown Rx Hydroxychloroquine [Plaquenil] 200 mg PO BID #4 tablet 02/24/20 Unknown Rx Ipratropium/Albuterol Sulfate 2 spray IH QID PRN #1 02/24/20 Unknown Rx [Combivent Respimat] ED Physical Exam - General Limitations: No Limitations General appearance: alert, in no apparent distress - Head Head exam: Present: atraumatic, normocephalic - Eye Eye exam: Present: normal appearance. Absent: scleral icterus - ENT ENT exam: Present: mucous membranes moist - Neck Neck exam: Present: normal inspection. Absent: tenderness, meningismus - Respiratory Respiratory exam: Present: normal lung sounds bilaterally. Absent: respiratory distress - Cardiovascular Cardiovascular Exam: Present: regular rate, normal rhythm. Absent: systolic murmur, diastolic murmur, rubs, gallop - GI/Abdominal GI/Abdominal exam: Present: soft, normal bowel sounds. Absent: distended, tenderness, guarding, rebound, rigid - Extremities Exam Extremities exam: Present: other (Increased girth right leg) - Back Exam Back exam: Present: normal inspection - Neurological Exam Neurological exam: Present: alert, oriented X3, CN II-XII intact. Absent: motor sensory deficit - Psychiatric Psychiatric exam: Present: normal affect, normal mood - Skin Skin exam: Present: warm, dry, intact, normal color. Absent: rash ED Course Vital Signs 03/15/20 03/15/20 03/15/20 14:55 15:29 15:30 Temperature 98.4 F Pulse Rate 76 81 79 Respiratory 20 27 H 27 H Rate Blood Pressure 142/94 129/77 119/77 O2 Sat by Pulse 97 98 98 Oximetry 03/15/20 03/15/20 03/15/20 15:32 16:00 16:30 Temperature Pulse Rate 81 85 Respiratory 20 30 H 24 Rate Blood Pressure 120/76 123/76 O2 Sat by Pulse 97 97 97 Oximetry ED Medical Decision Making - Lab Data Result diagrams: 03/15/20 15:07 03/15/20 15:07 Laboratory Results - last 24 hr 03/15/20 03/15/20 15:07 15:07 WBC 8.1 RBC 4.93 Hgb 13.7 Hct 41.8 MCV 85 MCH 28 MCHC 33 RDW 15.4 H Plt Count 274 Lymph % (Auto) 25.5 [place] % (Auto) 7.4 H Eos % (Auto) 1.1 Baso % (Auto) 0.4 Lymph # 2.1 [place] # 0.6 Eos # 0.1 Baso # 0.0 Seg Neutrophils % 65.6 Seg Neutrophils # 5.4 Sodium 137 Potassium 3.7 Chloride 100.9 Carbon Dioxide 21 L Anion Gap 19 BUN 11 Creatinine 0.7 Estimated GFR > 60 BUN/Creatinine Ratio 16 Glucose 105 H Calcium 9.6 Troponin T < 0.010 Laboratory Results - last 24 hr 03/15/20 03/15/20 03/15/20 15:07 15:07 15:49 WBC 8.1 RBC 4.93 Hgb 13.7 Hct 41.8 MCV 85 MCH 28 MCHC 33 RDW 15.4 H Plt Count 274 Lymph % (Auto) 25.5 [place] % (Auto) 7.4 H Eos % (Auto) 1.1 Baso % (Auto) 0.4 Lymph # 2.1 [place] # 0.6 Eos # 0.1 Baso # 0.0 Seg Neutrophils % 65.6 Seg Neutrophils # 5.4 PT 13.4 INR 1.01 APTT 30.3 D-Dimer 144.01 Sodium 137 Potassium 3.7 Chloride 100.9 Carbon Dioxide 21 L Anion Gap 19 BUN 11 Creatinine 0.7 Estimated GFR > 60 BUN/Creatinine Ratio 16 Glucose 105 H Lactic Acid Calcium 9.6 Magnesium Transferrin Total Bilirubin Direct Bilirubin Indirect Bilirubin AST ALT Alkaline Phosphatase Lactate Dehydrogenase Troponin T < 0.010 C-Reactive Protein NT-Pro-B Natriuret Pep Total Protein Albumin Albumin/Globulin Ratio 03/15/20 03/15/20 15:49 15:49 WBC RBC Hgb Hct MCV MCH MCHC RDW Plt Count Lymph % (Auto) [place] % (Auto) Eos % (Auto) Baso % (Auto) Lymph # [place] # Eos # Baso # Seg Neutrophils % Seg Neutrophils # PT INR APTT D-Dimer Sodium Potassium Chloride Carbon Dioxide Anion Gap BUN Creatinine Estimated GFR BUN/Creatinine Ratio Glucose Lactic Acid 1.20 Calcium Magnesium 1.60 L Transferrin 259 Total Bilirubin 0.30 Direct Bilirubin < 0.2 Indirect Bilirubin 0.1 AST 9 ALT 18 Alkaline Phosphatase 69 Lactate Dehydrogenase 149 Troponin T C-Reactive Protein 0.40 NT-Pro-B Natriuret Pep 30.73 Total Protein 7.4 Albumin 4.1 Albumin/Globulin Ratio 1.2 - EKG Data -: EKG Interpreted by Me EKG shows normal: sinus rhythm, axis, intervals, QRS complexes, ST-T waves Rate: normal - EKG Data Interpretation: no acute changes - Radiology Data Radiology results: report reviewed (No acute process), image reviewed - Medical Decision Making Doppler right leg is pending Critical care attestation.: If time is entered above; I have spent that time in minutes in the direct care of this critically ill patient, excluding procedure time. ED Disposition Clinical Impression: Hypomagnesemia Chest pain Qualifiers: Chest pain type: unspecified Qualified Code(s): R07.9 - Chest pain, unspecified Disposition: OP ADMIT IP TO THIS HOSP Is pt being admited?: Yes Does the pt Need Aspirin: Yes Condition: Stable Instructions: Chest Pain (ED) Referrals: PRIMARY CARE, [Primary Care Provider] - 3-5 Days Time of Disposition: 17:46
--- NOTE | 2020-03-15 15:45 | XRay Report ---
CHEST 1 VIEW 03/15/2020 2:37 PM INDICATION / CLINICAL INFORMATION: Chest Pain. COMPARISON: Chest x-ray 02/21/2020 FINDINGS: SUPPORT DEVICES: None. HEART / MEDIASTINUM: No significant abnormality. LUNGS / PLEURA: No significant pulmonary or pleural abnormality. Previously noted bilateral bronchopn eumonia has resolved No pneumothorax. ADDITIONAL FINDINGS: No significant additional findings. IMPRESSION: 1. No acute findings. Signer Name: Oral River MD Signed: 03/15/2020 3:41 PM Workstation Name: [id number]
[2020-03-15 16:29] LABS: INR 1.01 (0.87-1.13)
[2020-03-15 16:30] LABS: Partial Thromboplastin Time 30.3 Sec. (24.2-36.6)
[2020-03-15 16:35] LABS: Alanine Aminotransferase 18 units/L (7-56); Albumin 4.1 g/dL (3.9-5)
[2020-03-15 16:36] LABS: Bilirubin,Direct < 0.2 mg/dL (0-0.2)
[2020-03-15] MEDS ORDERED: MAGNESIUM SULFATE 2 GM/50 ML BAG IV ONE ×2 (17:45→18:08)
--- NOTE | 2020-03-15 20:43 | Vascular Lab Report ---
DUPLEX DOPPLER LOWER EXTREMITY VEINS, RIGHT INDICATION: R leg swelling. TECHNIQUE: Duplex doppler imaging was performed through the veins of the right lower extremity using venous comp ression and other maneuvers. COMPARISON: No relevant prior imaging study available. FINDINGS: Right Common femoral vein: Negative. Right Superficial femoral vein: Negative. Right Popliteal vein: Negative. Right Calf veins: Negative. Additional findings: None.. IMPRESSION: 1. No sonographic evidence for DVT in the right lower extremity. Signer Name: Patrick Liz MD Signed: 03/15/2020 8:39 PM Workstation Name: [id number]
[2020-03-15] MEDS ORDERED: HYDROmorphone 1 MG/1 ML INJ IV PRN (22:49)
[2020-03-15] MEDS ORDERED: ONDANSETRON 4 MG/2 ML INJ IV PRN (22:49)
[2020-03-15] MEDS ORDERED: ACETAMINOPHEN 325 MG TAB PO PRN (22:49)
[2020-03-15] MEDS ORDERED: oxyCODONE /ACETAMINOPHEN 5-325MG TAB PO PRN (22:49)
--- NOTE | 2020-03-15 22:53 | History and Physical Report ---
History of Present Illness Date of examination: 03/15/20 Date of admission: 03/15/20 17:46 Chief complaint: Chest pain 2 days History of present illness: 39-year-old female who recently was admitted to this facility February 24, 2020 with bilateral pneumonia comes in for Chest pain of 2 days. Apparently she was a person under investigation for COVID-19. COVID test was negative. There was some discussion by the radiologist if her chest x-ray could be consistent with miliary TB by the radiologist. However the technical sales support specialist did not think that she had TB. She had a TB test sent. she is not here for shortness of breath nor cough. She has not had any recent fever. She has been off antibiotics for some time. Comes in for chest pressure intermittently for the past 2 days. She states that she had some left arm radiation. She also complained of some right leg and right foot tingling. She was not aware that her right leg was larger than her left leg which it is. She did not complain of leg pain per se. She had no hemoptysis. Patient has no prior history of work-up for coronary artery disease nor a history of VTE. She lacks a family history of coronary artery disease as well. She is not complaining of active chest pain at the time of my encounter. Past Medical History Previous Medical History?: Yes Additional medical history: Coronavirus I believe this is not accurate unless she had a false negative test. - Surgical History Past Surgical History?: No - Social History Smoking Status: Never Smoker Substance Use Type: None - Medications Home Medications: Home Medications Medication Instructions Recorded Confirmed Last Taken Type ALPRAZolam [Xanax TAB] 0.25 mg PO Q12H PRN #10 tablet 02/24/20 Unknown Rx Azithromycin [Zithromax TAB] 250 mg PO QDAY #2 tablet 02/24/20 Unknown Rx Hydroxychloroquine [Plaquenil] 200 mg PO BID #4 tablet 02/24/20 Unknown Rx Ipratropium/Albuterol Sulfate 2 spray IH QID PRN #1 02/24/20 Unknown Rx [Combivent Respimat] Review of Systems ROS: Stated complaint: CHEST PAIN/RT LEG/LFT ARM NUMB Other details as noted in HPI Constitutional: denies: chills, fever Eyes: denies: eye pain, eye discharge, vision change ENT: denies: ear pain, throat pain Respiratory: denies: cough, shortness of breath, wheezing Cardiovascular: chest pain. denies: palpitations Endocrine: no symptoms reported Gastrointestinal: denies: abdominal pain, nausea, diarrhea Genitourinary: denies: urgency, dysuria, discharge Musculoskeletal: denies: back pain, joint swelling, arthralgia Skin: denies: rash, lesions Neurological: paresthesias. denies: headache, weakness Psychiatric: denies: anxiety, depression Hematological/Lymphatic: denies: easy bleeding, easy bruising Medications and Allergies Allergies Allergy/AdvReac Type Severity Reaction Status Date / Time No Known Allergies Allergy Verified 02/17/20 22:25 Home Medications Medication Instructions Recorded Confirmed Last Taken Type ALPRAZolam [Xanax TAB] 0.25 mg PO Q12H PRN #10 tablet 02/24/20 Unknown Rx Azithromycin [Zithromax TAB] 250 mg PO QDAY #2 tablet 02/24/20 Unknown Rx Hydroxychloroquine [Plaquenil] 200 mg PO BID #4 tablet 02/24/20 Unknown Rx Ipratropium/Albuterol Sulfate 2 spray IH QID PRN #1 02/24/20 Unknown Rx [Combivent Respimat] Exam - Constitutional Vitals: Temp Pulse Resp BP Pulse Ox 97.9 F 86 18 130/81 97 03/15/20 20:15 03/15/20 20:15 03/15/20 20:15 03/15/20 20:15 03/15/20 20:15 General appearance: Present: no acute distress, well-nourished - EENT Eyes: Present: PERRL ENT: hearing intact, clear oral mucosa - Neck Neck: Present: supple, normal ROM - Respiratory Respiratory effort: normal Respiratory: bilateral: CTA - Cardiovascular Heart rate: 89 Rhythm: regular Heart Sounds: Present: S1 & S2. Absent: rub, click - Extremities Extremities: pulses symmetrical, No edema Peripheral Pulses: within normal limits - Abdominal General gastrointestinal: Present: soft, non-tender, non-distended, normal bowel sounds Female genitourinary: Present: normal - Integumentary Integumentary: Present: clear, warm, dry - Musculoskeletal Musculoskeletal: gait normal, strength equal bilaterally - Psychiatric Psychiatric: appropriate mood/affect, intact judgment & insight - Neurologic Neurologic: CNII-XII intact, moves all extremities - Allied Health Allied health notes reviewed: nursing, case management MICHAEL score - Michael Score Age > 65: (0) No Aspirin use within the Past 7 Days: (0) No 3 or more CAD Risk Factors: (0) No 2 or more Angina events in past 24 hrs: (0) No Known CAD with more than 50% Stenosis: (0) No Elevated Cardiac Markers: (0) No ST Deviation Greater than 0.5mm: (0) No MICHAEL Score: 0 Results - Labs CBC & Chem 7: 03/16/20 03:43 03/16/20 03:43 Labs: Laboratory Last Values WBC 8.1 K/mm3 (4.5-11.0) 03/15/20 15:07 RBC 4.93 M/mm3 (3.65-5.03) 03/15/20 15:07 Hgb 13.7 gm/dl (10.1-14.3) 03/15/20 15:07 Hct 41.8 % (30.3-42.9) 03/15/20 15:07 MCV 85 fl (79-97) 03/15/20 15:07 MCH 28 pg (28-32) 03/15/20 15:07 MCHC 33 % (30-34) 03/15/20 15:07 RDW 15.4 % (13.2-15.2) H 03/15/20 15:07 Plt Count 274 K/mm3 (140-440) 03/15/20 15:07 Lymph % (Auto) 25.5 % (13.4-35.0) 03/15/20 15:07 [place] % (Auto) 7.4 % (0.0-7.3) H 03/15/20 15:07 Eos % (Auto) 1.1 % (0.0-4.3) 03/15/20 15:07 Baso % (Auto) 0.4 % (0.0-1.8) 03/15/20 15:07 Lymph # 2.1 K/mm3 (1.2-5.4) 03/15/20 15:07 [place] # 0.6 K/mm3 (0.0-0.8) 03/15/20 15:07 Eos # 0.1 K/mm3 (0.0-0.4) 03/15/20 15:07 Baso # 0.0 K/mm3 (0.0-0.1) 03/15/20 15:07 Seg Neutrophils % 65.6 % (40.0-70.0) 03/15/20 15:07 Seg Neutrophils # 5.4 K/mm3 (1.8-7.7) 03/15/20 15:07 PT 13.4 Sec. (12.2-14.9) 03/15/20 15:49 INR 1.01 (0.87-1.13) 03/15/20 15:49 APTT 30.3 Sec. (24.2-36.6) 03/15/20 15:49 D-Dimer 144.01 ng/mlDDU (0-234) 03/15/20 15:49 Sodium 137 mmol/L (137-145) 03/15/20 15:07 Potassium 3.7 mmol/L (3.6-5.0) 03/15/20 15:07 Chloride 100.9 mmol/L (98-107) 03/15/20 15:07 Carbon Dioxide 21 mmol/L (22-30) L 03/15/20 15:07 Anion Gap 19 mmol/L 03/15/20 15:07 BUN 11 mg/dL (7-17) 03/15/20 15:07 Creatinine 0.7 mg/dL (0.7-1.2) 03/15/20 15:07 Estimated GFR > 60 ml/min 03/15/20 15:07 BUN/Creatinine Ratio 16 % 03/15/20 15:07 Glucose 105 mg/dL (65-100) H 03/15/20 15:07 Lactic Acid 1.20 mmol/L (0.7-2.0) 03/15/20 15:49 Calcium 9.6 mg/dL (8.4-10.2) 03/15/20 15:07 Magnesium 1.60 mg/dL (1.7-2.3) L 03/15/20 15:49 Transferrin 259 mg/dl (192-382) 03/15/20 15:49 Total Bilirubin 0.30 mg/dL (0.1-1.2) 03/15/20 15:49 Direct Bilirubin < 0.2 mg/dL (0-0.2) 03/15/20 15:49 Indirect Bilirubin 0.1 mg/dL 03/15/20 15:49 AST 9 units/L (5-40) 03/15/20 15:49 ALT 18 units/L (7-56) 03/15/20 15:49 Alkaline Phosphatase 69 units/L (35-129) 03/15/20 15:49 Lactate Dehydrogenase 149 units/L (91-180) 03/15/20 15:49 Troponin T < 0.010 ng/mL (0.00-0.029) 03/15/20 20:53 C-Reactive Protein 0.40 mg/dL (0.00-1.30) 03/15/20 15:49 NT-Pro-B Natriuret Pep 30.73 pg/mL (0-450) 03/15/20 15:49 Total Protein 7.4 g/dL (6.3-8.2) 03/15/20 15:49 Albumin 4.1 g/dL (3.9-5) 03/15/20 15:49 Albumin/Globulin Ratio 1.2 % 03/15/20 15:49 Short CBC 03/15/20 Range/Units 15:07 WBC 8.1 (4.5-11.0) K/mm3 Hgb 13.7 (10.1-14.3) gm/dl Hct 41.8 (30.3-42.9) % Plt Count 274 (140-440) K/mm3 BMP 03/15/20 15:07 Sodium 137 Potassium 3.7 Chloride 100.9 Carbon Dioxide 21 L BUN 11 Creatinine 0.7 Glucose 105 H Calcium 9.6 Cardiac Enzymes 03/15/20 03/15/20 03/15/20 Range/Units 15:07 17:56 20:53 Troponin T < 0.010 < 0.010 < 0.010 (0.00-0.029) ng/mL Liver Function 03/15/20 Range/Units 15:49 Total Bilirubin 0.30 (0.1-1.2) mg/dL Direct Bilirubin < 0.2 (0-0.2) mg/dL AST 9 (5-40) units/L ALT 18 (7-56) units/L Alkaline Phosphatase 69 (35-129) units/L Albumin 4.1 (3.9-5) g/dL Short CBC 03/15/20 03/16/20 Range/Units 15:07 03:43 WBC 8.1 7.2 (4.5-11.0) K/mm3 Hgb 13.7 12.8 (10.1-14.3) gm/dl Hct 41.8 38.8 (30.3-42.9) % Plt Count 274 257 (140-440) K/mm3 BMP 03/15/20 03/16/20 15:07 03:43 Sodium 137 139 Potassium 3.7 4.0 Chloride 100.9 104.4 Carbon Dioxide 21 L 22 BUN 11 11 Creatinine 0.7 0.7 Glucose 105 H 92 Calcium 9.6 8.9 Cardiac Enzymes 03/15/20 03/15/20 03/15/20 Range/Units 15:07 17:56 20:53 Troponin T < 0.010 < 0.010 < 0.010 (0.00-0.029) ng/mL 03/15/20 03/16/20 Range/Units 23:58 03:43 Troponin T < 0.010 < 0.010 (0.00-0.029) ng/mL Liver Function 03/15/20 03/16/20 Range/Units 15:49 03:43 Total Bilirubin 0.30 0.30 (0.1-1.2) mg/dL Direct Bilirubin < 0.2 (0-0.2) mg/dL AST 9 7 (5-40) units/L ALT 18 14 (7-56) units/L Alkaline Phosphatase 69 58 (35-129) units/L Albumin 4.1 3.6 L (3.9-5) g/dL - Imaging and Cardiology EKG: report reviewed Mack/IV: Voiding Method Toilet IV Catheter Type [Left INT / Saline Lock Antecubital] Assessment and Plan Advance Directives: Yes (Full code full code) VTE prophylaxis?: Chemical Plan of care discussed with patient/family: Yes - Patient Problems (1) Chest pain Current Visit: Yes Status: Acute Qualifiers: Chest pain type: unspecified Qualified Code(s): R07.9 - Chest pain, unspecified Plan to address problem: R?O MD protocol Dc if Sress and Troponins negative (2) Bilateral pneumonia Current Visit: Yes Status: Acute Plan to address problem: Resolved Was Covid negative (3) DVT prophylaxis Current Visit: No Status: Acute Plan to address problem: On Heparin and GI prophylaxis
[2020-03-15] MEDS ORDERED: SODIUM CHLORIDE 0.9% 1000 ML 1,000 ML IV SCH (23:00)
[2020-03-16 04:22] LABS: Basophils % (Auto) 0.3 % (0.0-1.8); Eosinophils # (Auto) 0.1 K/mm3 (0.0-0.4); Eosinophils % (Auto) 1.3 % (0.0-4.3); Hematocrit 38.8 % (30.3-42.9); Hemoglobin 12.8 gm/dl (10.1-14.3); Lymphocytes # (Auto) 2.5 K/mm3 (1.2-5.4); Lymphocytes % (Auto) 34.7 % (13.4-35.0); Mean Corpuscular HGB Conc 33 % (30-34); Mean Corpuscular Volume 84 fl (79-97); Monocytes # (Auto) 0.7 K/mm3 (0.0-0.8); Monocytes % (Auto) 10.1 % (0.0-7.3); Platelet Count 257 K/mm3 (140-440); Red Blood Count 4.65 M/mm3 (3.65-5.03); Red Cell Distribution Width 15.3 % (13.2-15.2)
[2020-03-16 04:44] LABS: Alanine Aminotransferase 14 units/L (7-56); Albumin 3.6 g/dL (3.9-5); BUN/Creatinine Ratio 16; Blood Urea Nitrogen 11 mg/dL (7-17); Calcium 8.9 mg/dL (8.4-10.2); Hemolysis Index 5
[2020-03-16] MEDS ORDERED: REGADENOSON 0.4 MG/5 ML INJ IV ONE ×2 (07:54→08:00)
[2020-03-16] MEDS ORDERED: FAMOTIDINE 20 MG TAB PO SCH (10:00)
[2020-03-16 11:45] VITALS: BP 116/78
--- NOTE | 2020-03-16 11:59 | Discharge Summary ---
Providers - Providers Date of Admission: 03/15/20 17:46 Date of discharge: 03/16/20 Attending physician: TEQUILA BEARD Primary care physician: HOSIERY PAIRER Hospitalization Condition: Stable Hospital course: 39-year-old female who recently was admitted to this facility February 24, 2020 with bilateral pneumonia comes in for Chest pain of 2 days. Apparently she was a p erson under investigation for COVID-19. COVID test was negative. There was some discussion by the radiologist if her chest x-ray could be consistent with miliary TB by the radiologist. However the medical review specialist did not think that she had TB. She had a negative QuantiFERON TB test. Patient came in this time with complaints of chest pain. Patient was evaluated in the ER, initial cardiac enzyme and EKG was unremarkable, chest x-ray showed no infiltrates. Patient was admitted and underwent myocardial stress test which was normal. Patient was then discharged home in stable condition with outpatient follow-up. Discharge diagnosis: Chest pain, likely due to GERD History of bilateral pneumonia, resolved, COVID was negative Physical exam: GENERAL: well-developed and well-nourished female lying on bed appeared to be in no discomfort. HEENT: Normocephalic. Atraumatic. No conjunctival congestion or icterus. Patient has moist mucous membranes. NECK: Supple. Trachea midline. CHEST/LUNGS: Clear to auscultated bilaterally, breathing nonlabored. No wheezes crackles or rhonchi. HEART/CARDIOVASCULAR: Regular in rate and rhythm. S1 and S2 positive. ABDOMEN: Abdomen is soft, nontender. Patient has normal bowel sounds. SKIN: There is no rash. Warm and dry. NEURO: No focal motor deficit. Follows command. MUSCULOSKELETAL: No joint effusion or tenderness. EXTRIMITY: No edema, no cyanosis or clubbing. PSYCH: Cooperative. Disposition: DC-01 TO HOME OR SELFCARE Time spent for discharge: 34 minutes Core Measure Documentation - Palliative Care Palliative Care/ Comfort Measures: Not Applicable - Core Measures Any of the following diagnoses?: none Exam - Constitutional Vitals: Temp Pulse Resp BP Pulse Ox 97.8 F 78 16 114/62 98 03/16/20 03:54 03/16/20 04:54 03/16/20 03:54 03/16/20 03:54 03/16/20 03:54 Plan Activity: advance as tolerated Weight Bearing Status: Weight Bear as Tolerated Diet: low fat, low salt Follow up with: PRIMARY CARE, [Primary Care Provider] - 3-5 Days Prescriptions: Pantoprazole [Protonix] 40 mg PO QDAY #30 tablet
== END 2020-03-16 15:00 | disposition home or self-care (01) ==
LOC: ED 14:47 → 4A 17:46
PROVIDERS: ADMIT Internal Medicine; ATTEND Internal Medicine
DX: R07.89 Other chest pain (principal); J18.9 Pneumonia, unspecified organism; E83.42 Hypomagnesemia
CPT/HCPCS: 36415; 71045; 78452; 80048; 80053; 80076; 82140; 83036; 83615; 83735; 83880; 84466; 84484; 85025; 85379; 85610; 85730; 86140; 87641; 93005; 93017; 93971; 96365; 99285; A9502; G0378; J3475; J7030; J2785